=== PATIENT | male | born 1955 | race American Indian/Alaskan Native ===

== ENCOUNTER 2021-11-16 14:24 | Inpatient (IN) | payer MEDICARE ==
[2021-11-16 14:53] LABS: ABG Base Excess 2.9 mmol/L (-2.0-3.0); ABG HCO3 27.3 mmol/L (20.0-26.0); ABG Methemoglobin 0.5 % (0.0-1.5); ABG Oxygen Saturation 96.1 % (95.0-99.0); ABG PCO2 41.3 mm Hg; ABG PH 7.439 pH Units (7.350-7.450); ABG PO2 72.1 mm Hg (80.0-90.0)
[2021-11-16 15:24] LABS: Basophils # (Auto) 0.1 K/mm3 (0.0-0.1); Basophils % (Auto) 0.9 % (0.0-1.8); Eosinophils # (Auto) 0.1 K/mm3 (0.0-0.4); Eosinophils % (Auto) 0.9 % (0.0-4.3); Hematocrit 39.3 % (35.5-45.6); Hemoglobin 12.4 gm/dl (11.8-15.2); Lymphocytes # (Auto) 1.5 K/mm3 (1.2-5.4); Lymphocytes % (Auto) 20.5 % (13.4-35.0); Mean Corpuscular HGB Conc 32 % (32-34); Mean Corpuscular Volume 85 fl (84-94); Monocytes # (Auto) 0.8 K/mm3 (0.0-0.8); Monocytes % (Auto) 10.8 % (0.0-7.3); Platelet Count 347 K/mm3 (140-440); Red Blood Count 4.65 M/mm3 (3.65-5.03); Red Cell Distribution Width 13.1 % (13.2-15.2)
[2021-11-16 15:26] LABS: INR 1.13 (0.87-1.13)
--- NOTE | 2021-11-16 15:41 | XRay Report ---
CHEST 1 VIEW INDICATION: RESP. COMPARISON: 11/13/2021 FINDINGS: Support devices: None. Heart: Within normal limits. Lungs/Pleura: Diffuse bilateral lung infiltrates have significantly increased since the comparison ex am. I suspect this represents pulmonary edema. Bilateral pneumonia and viral infection is not exclude d. Additional findings: None. IMPRESSION: Diffuse bilateral lung infiltrates, increased significantly since 11/13/2021. Signer Name: Arnav Richards Jr, MD Signed: 11/16/2021 3:37 PM Workstation Name: [id number]
--- NOTE | 2021-11-16 15:44 | Emergency Department Report ---
ED Shortness of Breath HPI - General Chief Complaint: Dyspnea/Respdistress Stated Complaint: RESP DISTRESS Time Seen by Provider: 11/16/21 14:42 Source: EMS, old records reviewed Mode of arrival: Stretcher Limitations: No Limitations - History of Present Illness Initial Comments: 66-year-old male with a past medical history of atrial fibrillation currently on Eliquis, CAD status post PCI on November 07, 2021 at [facility] in [facility], hypertension, insulin-dependent diabetes, and cognitive impairment presents to the hospital with shortness of breath since discharge from the hospital 2 days ago. As per medical record review patient was admitted November 11 until the for acute respiratory failure with room air saturation 79% and diagnosis of community acquired pneumonia treated with IV antibiotics. Patient had negative Covid test and CT angiogram negative for pulmonary embolism. Patient was discharged on 2 tabs of Augmentin. Patient states today he laid down for a nap and woke up with chest heaviness and dyspnea. Patient was found to be hypoxic on room air and placed on supplemental oxygen upon ED arrival. Patient is vaccinated for Covid patient also complains of generalized abdominal tenderness and decreased bowel movements without nausea, vomiting, or fever. - Related Data Home Medications Medication Instructions Recorded Confirmed Last Taken Amiodarone [Cordarone 200 MG TAB] 200 mg PO DAILY 11/11/21 11/11/21 Unknown Apixaban [Eliquis] 5 mg PO BID 11/11/21 11/11/21 Unknown Aspirin EC [Halfprin EC] 81 mg PO QDAY 11/11/21 11/11/21 Unknown Atorvastatin [Lipitor] 80 mg PO QHS 11/11/21 11/11/21 Unknown Clopidogrel [Plavix] 75 mg PO QDAY 11/11/21 11/11/21 Unknown Metoprolol Succinate [Toprol Xl] 25 mg PO BID 11/11/21 11/11/21 Unknown Nitroglycerin [Nitrostat] 0.4 mg SL Q5M 11/11/21 11/11/21 Unknown donepeziL [Aricept] 5 mg PO HS 11/11/21 11/11/21 Unknown glipiZIDE [Glucotrol] 10 mg PO BID 11/11/21 11/11/21 Unknown ramipriL [Ramipril] 2.5 mg PO DAILY 11/11/21 11/11/21 Unknown Previous Rx's Medication Instructions Recorded Last Taken Type Amoxicillin/K Clav Tab [Augmentin 1 each PO Q12HR #2 tablet 11/14/21 Unknown Rx 875MG TAB] Furosemide [Lasix TAB] 40 mg PO QDAY #30 tablet 11/14/21 Unknown Rx Allergies Allergy/AdvReac Type Severity Reaction Status Date / Time No Known Allergies Allergy Verified 11/11/21 07:07 ED Review of Systems ROS: Stated complaint: RESP DISTRESS Other details as noted in HPI Comment: All other systems reviewed and negative ED Past Medical Hx - Past Medical History Hx Hypertension: Yes Hx Heart Attack/AMI: Yes Hx Congestive Heart Failure: Yes Hx Diabetes: Yes Additional medical history: Atrial fibrillation - Surgical History Hx Coronary Stent: Yes - Social History Smoking Status: Never Smoker - Medications Home Medications: Home Medications Medication Instructions Recorded Confirmed Last Taken Type Amiodarone [Cordarone 200 MG TAB] 200 mg PO DAILY 11/11/21 11/11/21 Unknown History Apixaban [Eliquis] 5 mg PO BID 11/11/21 11/11/21 Unknown History Aspirin EC [Halfprin EC] 81 mg PO QDAY 11/11/21 11/11/21 Unknown History Atorvastatin [Lipitor] 80 mg PO QHS 11/11/21 11/11/21 Unknown History Clopidogrel [Plavix] 75 mg PO QDAY 11/11/21 11/11/21 Unknown History Metoprolol Succinate [Toprol Xl] 25 mg PO BID 11/11/21 11/11/21 Unknown History Nitroglycerin [Nitrostat] 0.4 mg SL Q5M 11/11/21 11/11/21 Unknown History donepeziL [Aricept] 5 mg PO HS 11/11/21 11/11/21 Unknown History glipiZIDE [Glucotrol] 10 mg PO BID 11/11/21 11/11/21 Unknown History ramipriL [Ramipril] 2.5 mg PO DAILY 11/11/21 11/11/21 Unknown History Amoxicillin/K Clav Tab [Augmentin 1 each PO Q12HR #2 tablet 11/14/21 Unknown Rx 875MG TAB] Furosemide [Lasix TAB] 40 mg PO QDAY #30 tablet 11/14/21 Unknown Rx ED Physical Exam - General Limitations: No Limitations - Other Other exam information: General: No acute distress Head: Atraumatic Eyes: normal appearance ENT: Moist mucous membranes Neck: Normal appearance, no midline tenderness Chest: Mild tachypnea, bibasilar crackles CV: Regular rate and rhythm Abdomen: Soft, normal bowel sounds, nontender, nondistended, no rebound or guarding Back: Normal inspection Extremity: Normal inspection, full range of motion, no calf tenderness or edema Neuro: Alert O x 3, no facial asymmetry, speech clear, no gross motor sensory deficit Psych: Appropriate behavior Skin: No rash ED Course Vital Signs 11/16/21 11/16/21 11/16/21 14:29 14:30 14:34 Temperature 98.7 F Pulse Rate 83 85 Respiratory 16 Rate Blood Pressure Blood Pressure 170/110 [Left] O2 Sat by Pulse 96 92 96 Oximetry 11/16/21 11/16/21 11/16/21 14:45 15:00 15:15 Temperature Pulse Rate 81 78 80 Respiratory 18 21 23 Rate Blood Pressure 145/86 145/86 143/92 Blood Pressure [Left] O2 Sat by Pulse 97 97 Oximetry 11/16/21 11/16/21 11/16/21 15:30 15:45 16:01 Temperature Pulse Rate 77 95 H 80 Respiratory 22 22 23 Rate Blood Pressure 143/92 146/93 135/91 Blood Pressure [Left] O2 Sat by Pulse 98 97 96 Oximetry 11/16/21 11/16/21 11/16/21 16:15 16:55 17:01 Temperature Pulse Rate 79 80 89 Respiratory 18 20 Rate Blood Pressure 130/88 130/88 129/99 Blood Pressure [Left] O2 Sat by Pulse 95 95 96 Oximetry 11/16/21 11/16/21 11/16/21 17:15 17:31 17:45 Temperature Pulse Rate 80 83 80 Respiratory 27 H 19 16 Rate Blood Pressure 140/99 133/96 131/92 Blood Pressure [Left] O2 Sat by Pulse 96 98 97 Oximetry 11/16/21 17:50 Temperature Pulse Rate 82 Respiratory Rate Blood Pressure 131/92 Blood Pressure [Left] O2 Sat by Pulse Oximetry - ABG Interpretation Ph: 7.439 PCO2: 41 PO2: 72 (O2 sat 96%) Bicarbonate: 27 Interpretation: other (hypoxia) Additional Comments: on 4L o2 nasal cannula ED Medical Decision Making - Lab Data Result diagrams: 11/16/21 14:44 11/16/21 14:44 Lab Results 0111/16/21 11/16/21 Range/Units 14:44 14:44 14:44 WBC 7.5 (4.5-11.0) K/mm3 RBC 4.65 (3.65-5.03) M/mm3 Hgb 12.4 (11.8-15.2) gm/dl Hct 39.3 (35.5-45.6) % MCV 85 (84-94) fl MCH 27 L (28-32) pg MCHC 32 (32-34) % RDW 13.1 L (13.2-15.2) % Plt Count 347 (140-440) K/mm3 Lymph % (Auto) 20.5 (13.4-35.0) % [place] % (Auto) 10.8 H (0.0-7.3) % Eos % (Auto) 0.9 (0.0-4.3) % Baso % (Auto) 0.9 (0.0-1.8) % Lymph # (Auto) 1.5 (1.2-5.4) K/mm3 [place] # (Auto) 0.8 (0.0-0.8) K/mm3 Eos # (Auto) 0.1 (0.0-0.4) K/mm3 Baso # (Auto) 0.1 (0.0-0.1) K/mm3 Seg Neutrophils % 66.9 (40.0-70.0) % Seg Neutrophils # 5.0 (1.8-7.7) K/mm3 PT (12.2-14.9) Sec. INR (0.87-1.13) APTT (24.2-36.6) Sec. ABG pH (7.350-7.450) pH Units ABG pCO2 mm Hg ABG pO2 (80.0-90.0) mm Hg ABG HCO3 (20.0-26.0) mmol/L ABG O2 Saturation (95.0-99.0) % ABG O2 Content (0.0-44) ABG Base Excess (-2.0-3.0) mmol/L ABG Hemoglobin (14.0-18.0) gm/dl ABG Carboxyhemoglobin (0.0-5.0) % ABG Methemoglobin (0.0-1.5) % Oxyhemoglobin (95.0-99.0) % FiO2 % Sodium 136 L (137-145) mmol/L Potassium 5.4 H (3.6-5.0) mmol/L Chloride 99.1 (98-107) mmol/L Carbon Dioxide 25 (22-30) mmol/L Anion Gap 17 mmol/L BUN 10 (9-20) mg/dL Creatinine 0.9 (0.8-1.3) mg/dL Estimated GFR > 60 ml/min BUN/Creatinine Ratio 11 % Glucose 274 H (75-100) mg/dL Calcium 9.2 (8.4-10.2) mg/dL Magnesium 2.10 (1.7-2.3) mg/dL Total Bilirubin 0.40 (0.1-1.2) mg/dL AST 66 H (5-40) units/L ALT 53 (7-56) units/L Alkaline Phosphatase 134 H (35-129) units/L Total Creatine Kinase 61 (55-170) units/L Troponin T (0.00-0.029) ng/mL NT-Pro-B Natriuret Pep 3097 H (0-900) pg/mL Total Protein 6.6 (6.3-8.2) g/dL Albumin 3.4 L (3.9-5) g/dL Albumin/Globulin Ratio 1.1 % 11/16/21 11/16/21 11/16/21 Range/Units 14:45 15:09 15:09 WBC (4.5-11.0) K/mm3 RBC (3.65-5.03) M/mm3 Hgb (11.8-15.2) gm/dl Hct (35.5-45.6) % MCV (84-94) fl MCH (28-32) pg MCHC (32-34) % RDW (13.2-15.2) % Plt Count (140-440) K/mm3 Lymph % (Auto) (13.4-35.0) % [place] % (Auto) (0.0-7.3) % Eos % (Auto) (0.0-4.3) % Baso % (Auto) (0.0-1.8) % Lymph # (Auto) (1.2-5.4) K/mm3 [place] # (Auto) (0.0-0.8) K/mm3 Eos # (Auto) (0.0-0.4) K/mm3 Baso # (Auto) (0.0-0.1) K/mm3 Seg Neutrophils % (40.0-70.0) % Seg Neutrophils # (1.8-7.7) K/mm3 PT 15.7 H (12.2-14.9) Sec. INR 1.13 (0.87-1.13) APTT 28.0 (24.2-36.6) Sec. ABG pH 7.439 (7.350-7.450) pH Units ABG pCO2 41.3 mm Hg ABG pO2 72.1 L (80.0-90.0) mm Hg ABG HCO3 27.3 H (20.0-26.0) mmol/L ABG O2 Saturation 96.1 (95.0-99.0) % ABG O2 Content 16.2 (0.0-44) ABG Base Excess 2.9 (-2.0-3.0) mmol/L ABG Hemoglobin 12.2 L (14.0-18.0) gm/dl ABG Carboxyhemoglobin 1.7 (0.0-5.0) % ABG Methemoglobin 0.5 (0.0-1.5) % Oxyhemoglobin 94.1 L (95.0-99.0) % FiO2 35 % Sodium (137-145) mmol/L Potassium (3.6-5.0) mmol/L Chloride (98-107) mmol/L Carbon Dioxide (22-30) mmol/L Anion Gap mmol/L BUN (9-20) mg/dL Creatinine (0.8-1.3) mg/dL Estimated GFR ml/min BUN/Creatinine Ratio % Glucose (75-100) mg/dL Calcium (8.4-10.2) mg/dL Magnesium (1.7-2.3) mg/dL Total Bilirubin (0.1-1.2) mg/dL AST (5-40) units/L ALT (7-56) units/L Alkaline Phosphatase (35-129) units/L Total Creatine Kinase (55-170) units/L Troponin T 0.321 H* (0.00-0.029) ng/mL NT-Pro-B Natriuret Pep (0-900) pg/mL Total Protein (6.3-8.2) g/dL Albumin (3.9-5) g/dL Albumin/Globulin Ratio % // Range/Units 17:29 WBC (4.5-11.0) K/mm3 RBC (3.65-5.03) M/mm3 Hgb (11.8-15.2) gm/dl Hct (35.5-45.6) % MCV (84-94) fl MCH (28-32) pg MCHC (32-34) % RDW (13.2-15.2) % Plt Count (140-440) K/mm3 Lymph % (Auto) (13.4-35.0) % [place] % (Auto) (0.0-7.3) % Eos % (Auto) (0.0-4.3) % Baso % (Auto) (0.0-1.8) % Lymph # (Auto) (1.2-5.4) K/mm3 [place] # (Auto) (0.0-0.8) K/mm3 Eos # (Auto) (0.0-0.4) K/mm3 Baso # (Auto) (0.0-0.1) K/mm3 Seg Neutrophils % (40.0-70.0) % Seg Neutrophils # (1.8-7.7) K/mm3 PT (12.2-14.9) Sec. INR (0.87-1.13) APTT (24.2-36.6) Sec. ABG pH (7.350-7.450) pH Units ABG pCO2 mm Hg ABG pO2 (80.0-90.0) mm Hg ABG HCO3 (20.0-26.0) mmol/L ABG O2 Saturation (95.0-99.0) % ABG O2 Content (0.0-44) ABG Base Excess (-2.0-3.0) mmol/L ABG Hemoglobin (14.0-18.0) gm/dl ABG Carboxyhemoglobin (0.0-5.0) % ABG Methemoglobin (0.0-1.5) % Oxyhemoglobin (95.0-99.0) % FiO2 % Sodium (137-145) mmol/L Potassium (3.6-5.0) mmol/L Chloride (98-107) mmol/L Carbon Dioxide (22-30) mmol/L Anion Gap mmol/L BUN (9-20) mg/dL Creatinine (0.8-1.3) mg/dL Estimated GFR ml/min BUN/Creatinine Ratio % Glucose (75-100) mg/dL Calcium (8.4-10.2) mg/dL Magnesium (1.7-2.3) mg/dL Total Bilirubin (0.1-1.2) mg/dL AST (5-40) units/L ALT (7-56) units/L Alkaline Phosphatase (35-129) units/L Total Creatine Kinase (55-170) units/L Troponin T 0.277 H* (0.00-0.029) ng/mL NT-Pro-B Natriuret Pep (0-900) pg/mL Total Protein (6.3-8.2) g/dL Albumin (3.9-5) g/dL Albumin/Globulin Ratio % - EKG Data -: EKG Interpreted by Co EKG shows normal: sinus rhythm, intervals (QTC 556 (prolonged)), QRS complexes (QRS duration 87 (normal)), ST-T waves (No ST elevation ME) Rate: normal (81) - EKG Data When compared to previous EKG there are: no significant change - Radiology Data Radiology results: report reviewed CHEST 1 VIEW INDICATION: RESP. COMPARISON: 11/13/2021 FINDINGS: Support devices: None. Heart: Within normal limits. Lungs/Pleura: Diffuse bilateral lung infiltrates have significantly increased since the comparison exam. I suspect this represents pulmonary edema. Bilateral pneumonia and viral infection is not excluded. Additional findings: None. IMPRESSION: Diffuse bilateral lung infiltrates, increased significantly since 11/13/2021. CT abdomen pelvis w con INDICATION / CLINICAL INFORMATION: Abdominal pain, constipation, distention.. TECHNIQUE: Axial CT images were obtained through the abdomen and pelvis after 100 cc of Omnipaque [address] scans at this location are performed using CT dose reduction for ALARA by means of automated exposure control. COMPARISON: CTA of the chest from 11/11/2021. FINDINGS: LOWER CHEST: Small bilateral pleural effusions and adjacent volume loss are unchanged. Mild pulmonary opacities within the right lung base. Other previously described airspace disease is not included on the study. LIVER: No significant abnormality GALLBLADDER/BILIARY TREE: Uncomplicated cholelithiasis. No evidence of biliary dilatation. PANCREAS: No significant abnormality SPLEEN: No significant abnormality ADRENALS: No significant abnormality KIDNEYS / URETER: No significant abnormality URINARY BLADDER: No significant abnormality REPRODUCTIVE ORGANS: No significant abnormality STOMACH / BOWEL: The small bowel is normal in caliber. Moderate fluid throughout the colon without evidence of obstruction or localized inflammation. Appendix is visualized and is normal. LYMPH NODES: No significant adenopathy. VASCULATURE: Mild atherosclerotic calcification without acute abnormality. OTHER: No free air, free fluid, or focal fluid collection is identified. SKELETAL SYSTEM: Prominent degenerative endplate changes at the superior plate of L3. No acute osseous findings. IMPRESSION: 1. No acute abnormality of the abdomen or pelvis. No evidence of bowel obstruction or localized inflammation. 2. Small bilateral pleural effusions and adjacent volume loss. Previously described diffuse pulmonary opacities are largely excluded from view. 3. Other chronic and incidental findings as above. - Medical Decision Making 66-year-old male presents to the hospital with shortness of breath that worsened today. Chest x-ray suggestive of pulmonary edema with pleural effusions visualized on abdominal pelvic CT. Patient does have generalized pain endorses constipation. No acute findings identified on CT abdomen and pelvis. Patient does have mild troponin elevation with recent history of ME requiring PCI several weeks ago. Patient treated Jeramie-Synephrine oxygen titration with 4 L na rebel cannula oxygen required in the ED with adequate oxygenation. No signs of CO2 retention or acid-base disturbance. Patient also received nitroglycerin paste and IV Lasix for treatment of acute pulmonary edema. Patient tolerated p.o. intake in the ED despite abdominal discomfort. Recent inpatient Covid test negative. Repeat ordered. Critical Care Time: Yes Critical care time in (mins) excluding proc time.: 35 Critical care attestation.: If time is entered above; I have spent that time in minutes in the direct care of this critically ill patient, excluding procedure time. Critical Care Time: 35 Minutes of critical care time excluding procedures were used in the care of the patient. I discussed treatment plan with the nursing team members. I reviewed electronic record. I spoke with family to obtain medical history. Patient required multiple interventions and reassessments. Patient required oxygen titration and ABG interpretation for acute respiratory failure. Patient required multiple interventions including Lasix and nitroglycerin paste for pulmonary edema. ED Disposition Clinical Impression: Acute respiratory failure with hypoxia, Recent myocardial infarction, Acute heart failure Disposition: ADMITTED INPATIENT Is pt being admited?: Yes Condition: Stable Time of Disposition: 18:16 (Dr mcdowell/hosp)
[2021-11-16] MEDS ORDERED: NITROGLYCERIN 2% OINT 1 GM TP ONE (15:45)
[2021-11-16] MEDS ORDERED: CEFEPIME/NS 2 GM/100 ML 2 GM/100 ML BAG IV ONE (15:48)
[2021-11-16 15:58] LABS: Alanine Aminotransferase 53 units/L (7-56); Albumin 3.4 g/dL (3.9-5); BUN/Creatinine Ratio 11; Blood Urea Nitrogen 10 mg/dL (9-20); Calcium 9.2 mg/dL (8.4-10.2); Hemolysis Index 33
[2021-11-16] MEDS ORDERED: VANCOMYCIN 1,500 MG in SODIUM CHLORIDE 0.9% 500 ML 500 ML IV ONE (16:00)
[2021-11-16] MEDS ORDERED: FUROSEMIDE 40 MG/4 ML INJ IV ONE (16:17)
--- NOTE | 2021-11-16 17:04 | Cat Scan Report ---
CT abdomen pelvis w con INDICATION / CLINICAL INFORMATION: Abdominal pain, constipation, distention.. TECHNIQUE: Axial CT images were obtained through the abdomen and pelvis after 100 cc of Omnipaque [address] scans at this location are performed using CT dose reduction for ALARA by means of automated exposure control. COMPARISON: CTA of the chest from 11/11/2021. FINDINGS: LOWER CHEST: Small bilateral pleural effusions and adjacent volume loss are unchanged. Mild pulmonary opacities within the right lung base. Other previously described airspace disease is not included on the study. LIVER: No significant abnormality GALLBLADDER/BILIARY TREE: Uncomplicated cholelithiasis. No evidence of biliary dilatation. PANCREAS: No significant abnormality SPLEEN: No significant abnormality ADRENALS: No significant abnormality KIDNEYS / URETER: No significant abnormality URINARY BLADDER: No significant abnormality REPRODUCTIVE ORGANS: No significant abnormality STOMACH / BOWEL: The small bowel is normal in caliber. Moderate fluid throughout the colon without ev idence of obstruction or localized inflammation. Appendix is visualized and is normal. LYMPH NODES: No significant adenopathy. VASCULATURE: Mild atherosclerotic calcification without acute abnormality. OTHER: No free air, free fluid, or focal fluid collection is identified. SKELETAL SYSTEM: Prominent degenerative endplate changes at the superior plate of L3. No acute osseou s findings. IMPRESSION: 1. No acute abnormality of the abdomen or pelvis. No evidence of bowel obstruction or localized infla mmation. 2. Small bilateral pleural effusions and adjacent volume loss. Previously described diffuse pulmonary opacities are largely excluded from view. 3. Other chronic and incidental findings as above. Signer Name: Flash Cheek MD Signed: 11/16/2021 5:00 PM Workstation Name: [id number]
--- NOTE | 2021-11-16 19:01 | History and Physical Report ---
History of Present Illness Date of examination: 11/16/21 Date of admission: November 16, 2021 Chief complaint: Shortness of breath for 1 day History of present illness: 66-year-old man with history of hypertension, type 2 diabetes, coronary artery disease, hyperlipidemia and atrial fibrillation, coronary artery disease PCI on November 07, 2021 at) comes in for shortness of breath for 2 days. Patient was apparently admitted for acute respiratory failure from November 14 and was discharged. Apparently oxygen saturations were 79% and the diagnosis of community-acquired pneumonia was made and was treated with IV antibiotics. Patient apparently had a negative Covid test. Patient CT angiogram was also negative for pulmonary embolism. Patient was discharged Augmentin. Patient comes in shortness of breath and his oxygen saturation were low at the time of admission to the ER. But after couple hours patient improved and near normal. On 2 L nasal cannula oxygen. Review of Systems ROS: Stated complaint: RESP DISTRESS Other details as noted in HPI Comment: All other systems reviewed and negative - Past Medical History --Hypertension: Yes --Heart Attack/AMI: Yes --Congestive Heart Failure: Yes --Diabetes: Yes --Additional medical history: Atrial fibrillation - Surgical History Coronary Stent: Yes - Social History Smoking Status: Never Smoker - Medications Home Medications: Home Medications Medication Instructions Recorded Confirmed Last Taken Type Amiodarone [Cordarone 200 MG TAB] 200 mg PO DAILY 11/11/21 11/11/21 Unknown History Apixaban [Eliquis] 5 mg PO BID 11/11/21 11/11/21 Unknown History Aspirin EC [Halfprin EC] 81 mg PO QDAY 11/11/21 11/11/21 Unknown History Atorvastatin [Lipitor] 80 mg PO QHS 11/11/21 11/11/21 Unknown History Clopidogrel [Plavix] 75 mg PO QDAY 11/11/21 11/11/21 Unknown History Metoprolol Succinate [Toprol Xl] 25 mg PO BID 11/11/21 11/11/21 Unknown History Nitroglycerin [Nitrostat] 0.4 mg SL Q5M 11/11/21 11/11/21 Unknown History donepeziL [Aricept] 5 mg PO HS 11/11/21 11/11/21 Unknown History glipiZIDE [Glucotrol] 10 mg PO BID 11/11/21 11/11/21 Unknown History ramipriL [Ramipril] 2.5 mg PO DAILY 11/11/21 11/11/21 Unknown History Amoxicillin/K Clav Tab [Augmentin 1 each PO Q12HR #2 tablet 11/14/21 Unknown Rx 875MG TAB] Furosemide [Lasix TAB] 40 mg PO QDAY #30 tablet 11/14/21 Unknown Rx Medications and Allergies Allergies Allergy/AdvReac Type Severity Reaction Status Date / Time No Known Allergies Allergy Verified 11/11/21 07:07 Home Medications Medication Instructions Recorded Confirmed Last Taken Type Amiodarone [Cordarone 200 MG TAB] 200 mg PO DAILY 11/11/21 11/17/21 Unknown History Apixaban [Eliquis] 5 mg PO BID 11/11/21 11/17/21 Unknown History Aspirin EC [Halfprin EC] 81 mg PO QDAY 11/11/21 11/17/21 Unknown History Atorvastatin [Lipitor] 80 mg PO QHS 11/11/21 11/17/21 Unknown History Clopidogrel [Plavix] 75 mg PO QDAY 11/11/21 11/17/21 Unknown History Metoprolol Succinate [Toprol Xl] 25 mg PO BID 11/11/21 11/17/21 Unknown History Nitroglycerin [Nitrostat] 0.4 mg SL Q5M 11/11/21 11/17/21 Unknown History donepeziL [Aricept] 5 mg PO HS 11/11/21 11/17/21 Unknown History glipiZIDE [Glucotrol] 10 mg PO BID 11/11/21 11/17/21 Unknown History ramipriL [Ramipril] 2.5 mg PO DAILY 11/11/21 11/17/21 Unknown History Amoxicillin/K Clav Tab [Augmentin 1 each PO Q12HR #2 tablet 11/14/21 11/17/21 2 Days Ago Rx 875MG TAB] ~11/15/21 Furosemide [Lasix TAB] 40 mg PO QDAY #30 tablet 11/14/21 11/17/21 Unknown Rx Exam - Constitutional Vitals: Temp Pulse Resp BP Pulse Ox 98.7 F 82 16 131/92 97 11/16/21 14:29 11/16/21 17:50 11/16/21 17:45 11/16/21 17:50 11/16/21 17:45 General appearance: Present: no acute distress, well-nourished - EENT Eyes: Present: PERRL ENT: hearing intact, clear oral mucosa - Neck Neck: Present: supple, normal ROM - Respiratory Respiratory effort: normal Respiratory: bilateral: CTA, rhonchi, wheezing - Cardiovascular Heart rate: 78 Rhythm: regular Heart Sounds: Present: S1 & S2. Absent: rub, click - Extremities Extremities: pulses symmetrical, No edema Peripheral Pulses: within normal limits - Abdominal General gastrointestinal: Present: soft, non-tender, non-distended, normal bowel sounds Male genitourinary: Present: normal - Integumentary Integumentary: Present: clear, warm, dry - Musculoskeletal Musculoskeletal: gait normal, strength equal bilaterally - Psychiatric Psychiatric: appropriate mood/affect, intact judgment & insight - Neurologic Neurologic: CNII-XII intact, moves all extremities - Allied Health Allied health notes reviewed: nursing, case management HEART Score - HEART Score History: Moderately suspicious Age: > 65 Troponin: Troponin T 0.277 ng/mL (0.00-0.029) H* 11/16/21 17:29 Troponin: < normal limit - Critical Actions Critical Actions: 0-3 pts:0.9-1.7%risk of adverse cardiac event.Candidate for discharge Results - Labs CBC & Chem 7: 11/16/21 14:44 11/16/21 14:44 Labs: Laboratory Last Values WBC 7.5 K/mm3 (4.5-11.0) 11/16/21 14:44 RBC 4.65 M/mm3 (3.65-5.03) 11/16/21 14:44 Hgb 12.4 gm/dl (11.8-15.2) 11/16/21 14:44 Hct 39.3 % (35.5-45.6) 11/16/21 14:44 MCV 85 fl (84-94) 11/16/21 14:44 MCH 27 pg (28-32) L 11/16/21 14:44 MCHC 32 % (32-34) 11/16/21 14:44 RDW 13.1 % (13.2-15.2) L 11/16/21 14:44 Plt Count 347 K/mm3 (140-440) 11/16/21 14:44 Lymph % (Auto) 20.5 % (13.4-35.0) 11/16/21 14:44 [place] % (Auto) 10.8 % (0.0-7.3) H 11/16/21 14:44 Eos % (Auto) 0.9 % (0.0-4.3) 11/16/21 14:44 Baso % (Auto) 0.9 % (0.0-1.8) 11/16/21 14:44 Lymph # (Auto) 1.5 K/mm3 (1.2-5.4) 11/16/21 14:44 [place] # (Auto) 0.8 K/mm3 (0.0-0.8) 11/16/21 14:44 Eos # (Auto) 0.1 K/mm3 (0.0-0.4) 11/16/21 14:44 Baso # (Auto) 0.1 K/mm3 (0.0-0.1) 11/16/21 14:44 Seg Neutrophils % 66.9 % (40.0-70.0) 11/16/21 14:44 Seg Neutrophils # 5.0 K/mm3 (1.8-7.7) 11/16/21 14:44 PT 15.7 Sec. (12.2-14.9) H 11/16/21 15:09 INR 1.13 (0.87-1.13) 11/16/21 15:09 APTT 28.0 Sec. (24.2-36.6) 11/16/21 15:09 ABG pH 7.439 pH Units (7.350-7.450) 11/16/21 14:45 ABG pCO2 41.3 mm Hg 11/16/21 14:45 ABG pO2 72.1 mm Hg (80.0-90.0) L 11/16/21 14:45 ABG HCO3 27.3 mmol/L (20.0-26.0) H 11/16/21 14:45 ABG O2 Saturation 96.1 % (95.0-99.0) 11/16/21 14:45 ABG O2 Content 16.2 (0.0-44) 11/16/21 14:45 ABG Base Excess 2.9 mmol/L (-2.0-3.0) 11/16/21 14:45 ABG Hemoglobin 12.2 gm/dl (14.0-18.0) L 11/16/21 14:45 ABG Carboxyhemoglobin 1.7 % (0.0-5.0) 11/16/21 14:45 ABG Methemoglobin 0.5 % (0.0-1.5) 11/16/21 14:45 Oxyhemoglobin 94.1 % (95.0-99.0) L 11/16/21 14:45 FiO2 35 % 11/16/21 14:45 Sodium 136 mmol/L (137-145) L 11/16/21 14:44 Potassium 5.4 mmol/L (3.6-5.0) H 11/16/21 14:44 Chloride 99.1 mmol/L (98-107) 11/16/21 14:44 Carbon Dioxide 25 mmol/L (22-30) 11/16/21 14:44 Anion Gap 17 mmol/L 11/16/21 14:44 BUN 10 mg/dL (9-20) 11/16/21 14:44 Creatinine 0.9 mg/dL (0.8-1.3) 11/16/21 14:44 Estimated GFR > 60 ml/min 11/16/21 14:44 BUN/Creatinine Ratio 11 % 11/16/21 14:44 Glucose 274 mg/dL (75-100) H 11/16/21 14:44 Calcium 9.2 mg/dL (8.4-10.2) 11/16/21 14:44 Magnesium 2.10 mg/dL (1.7-2.3) 11/16/21 14:44 Total Bilirubin 0.40 mg/dL (0.1-1.2) 11/16/21 14:44 AST 66 units/L (5-40) H 11/16/21 14:44 ALT 53 units/L (7-56) 11/16/21 14:44 Alkaline Phosphatase 134 units/L (35-129) H 11/16/21 14:44 Total Creatine Kinase 61 units/L (55-170) 11/16/21 14:44 Troponin T 0.277 ng/mL (0.00-0.029) H* 11/16/21 17:29 NT-Pro-B Natriuret Pep 3097 pg/mL (0-900) H 11/16/21 14:44 Total Protein 6.6 g/dL (6.3-8.2) 11/16/21 14:44 Albumin 3.4 g/dL (3.9-5) L 11/16/21 14:44 Albumin/Globulin Ratio 1.1 % 11/16/21 14:44 Short CBC 11/16/21 Range/Units 14:44 WBC 7.5 (4.5-11.0) K/mm3 Hgb 12.4 (11.8-15.2) gm/dl Hct 39.3 (35.5-45.6) % Plt Count 347 (140-440) K/mm3 BMP 11/16/21 14:44 Sodium 136 L Potassium 5.4 H Chloride 99.1 Carbon Dioxide 25 BUN 10 Creatinine 0.9 Glucose 274 H Calcium 9.2 Cardiac Enzymes 11/16/21 11/16/21 11/16/21 Range/Units 14:44 15:09 17:29 Total Creatine Kinase 61 (55-170) units/L Troponin T 0.321 H* 0.277 H* (0.00-0.029) ng/mL Liver Function 11/16/21 Range/Units 14:44 Total Bilirubin 0.40 (0.1-1.2) mg/dL AST 66 H (5-40) units/L ALT 53 (7-56) units/L Alkaline Phosphatase 134 H (35-129) units/L Albumin 3.4 L (3.9-5) g/dL Microbiology: Microbiology 11/16/21 16:13 Peripheral/Venous Blood Culture - Preliminary Culture in Progress 11/16/21 16:08 Peripheral/Venous Blood Culture - Preliminary Culture in Progress - Imaging and Cardiology EKG: report reviewed Chest x-ray: report reviewed Imaging and Cardiology: Chest x-ray Diffuse bilateral lung infiltrates, increased significantly since 11/13/2021 Abdomen/pelvis CT No acute abnormality of the abdomen or pelvis. No evidence of bowel obstruction. Small bilateral pleural effusions and bibasilar volume loss. Previously described pulmonary diffuse opacities. Other chronic and incidental findings EKG showed normal sinus rhythm with intervals of prolonged QTC of 556, QRS complexes QRS duration [address] reevaluation no accelerations. Rate is 21.. Assessment and Plan Advance Directives: Yes (Full code) Plan of care discussed with patient/family: Yes - Patient Problems (1) Acute respiratory failure with hypoxia Current Visit: Yes Status: Acute Plan to address problem: Possible acute pulmonary edema Rule out coronavirus infection IV Lasix (2) Suspected COVID-19 virus infection Current Visit: No Status: Acute Plan to address problem: Covid PCR in the morning (3) Acute exacerbation of CHF (congestive heart failure) Current Visit: Yes Status: Acute Qualifiers: Heart failure type: combined systolic and diastolic Qualified Code(s): I50.43 - Acute on chronic combined systolic (congestive) and diastolic (congestive) heart failure Plan to address problem: IV Lasix for now Echocardiogram for ejection fraction (4) Bilateral pneumonia Current Visit: Yes Status: Acute Plan to address problem: Antibiotics for now Discontinue if procalcitonin is normal (5) Arrhythmia Current Visit: Yes Status: Acute Plan to address problem: On Eliquis (6) CAD (coronary artery disease) Current Visit: Yes Status: Chronic Qualifiers: Coronary Disease-Associated Artery/Lesion type: elim ira artery [place] vs. 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 Patient is full code. Patient acknowledges understanding and agreement with care plan. +30 minutes.
[2021-11-16] MEDS ORDERED: ACETAMINOPHEN 325 MG TAB PO PRN (19:03)
[2021-11-16] MEDS ORDERED: ONDANSETRON 4 MG/2 ML INJ IV PRN (19:03)
[2021-11-16 19:06] LABS: ABG Base Excess 4.1 mmol/L (-2.0-3.0); ABG Methemoglobin 0.5 % (0.0-1.5); ABG Oxygen Saturation 91.5 % (95.0-99.0); ABG PCO2 39.9 mm Hg; ABG PH 7.465 pH Units (7.350-7.450)
[2021-11-16] MEDS ORDERED: HYDROmorphone 1 MG/1 ML INJ IV PRN (19:12)
[2021-11-16] MEDS ORDERED: oxyCODONE /ACETAMINOPHEN 5-325MG TAB PO PRN (19:12)
[2021-11-16] MEDS ORDERED: RAMIPRIL 2.5 MG PO SCH (20:00)
[2021-11-16] MEDS: DONEPEZIL 5 MG TAB PO SCH (21:32)
[2021-11-16] MEDS: POTASSIUM CHLORIDE ER 20 MEQ TAB PO SCH (21:33)
[2021-11-16] MEDS: FAMOTIDINE 20 MG TAB PO SCH (21:34)
[2021-11-16] MEDS: glipiZIDE 5 MG TAB PO SCH (21:34)
[2021-11-16] MEDS ORDERED: APIXABAN 5 MG TAB PO SCH (22:00)
[2021-11-16] MEDS ORDERED: NON-FORMULARY EACH (Apixaban 5 MG Tablet) PO SCH (22:00)
[2021-11-16] MEDS ORDERED: HEPARIN 5,000 UNIT/1 ML VIAL SUB-Q SCH (22:00)
[2021-11-16] MEDS ORDERED: NON-FORMULARY EACH (Atorvastatin [Lipitor] 80 MG Tablet) PO SCH (22:00)
[2021-11-16] MEDS: AMIODARONE 200 MG TAB PO SCH (22:16)
[2021-11-17] MEDS: ASPIRIN EC 81 MG TAB PO SCH ×2 (00:08→09:34)
[2021-11-17] MEDS: METOPROLOL SUCCINATE XL 25 MG TAB PO SCH ×3 (00:08→22:24)
[2021-11-17] MEDS ORDERED: FUROSEMIDE 40 MG/4 ML INJ IV SCH (06:00)
[2021-11-17] MEDS ORDERED: HEPARIN 10,000 UNITS/10 ML VIAL IV PRN (07:59)
[2021-11-17] MEDS ORDERED: HEPARIN 10,000 UNITS/10 ML VIAL IV ONE ×2 (07:59→09:00)
[2021-11-17 09:27] LABS: Basophils % (Auto) 0.2 % (0.0-1.8); Eosinophils # (Auto) 0.1 K/mm3 (0.0-0.4); Hematocrit 36.7 % (35.5-45.6); Hemoglobin 11.7 gm/dl (11.8-15.2); Lymphocytes # (Auto) 1.4 K/mm3 (1.2-5.4); Mean Corpuscular HGB Conc 32 % (32-34); Mean Corpuscular Volume 84 fl (84-94); Monocytes # (Auto) 0.8 K/mm3 (0.0-0.8); Monocytes % (Auto) 9.4 % (0.0-7.3); Platelet Count 378 K/mm3 (140-440); Red Cell Distribution Width 12.9 % (13.2-15.2)
[2021-11-17] MEDS: glipiZIDE 5 MG TAB PO SCH ×2 (09:34→22:15)
[2021-11-17] MEDS: cefTRIAXone/NS 2 GM/100 ML 2 GM/100 ML BAG IV SCH ×2 (09:34→10:32)
[2021-11-17] MEDS: POTASSIUM CHLORIDE ER 20 MEQ TAB PO SCH ×2 (09:35→22:14)
[2021-11-17] MEDS: FAMOTIDINE 20 MG TAB PO SCH ×2 (09:35→22:14)
[2021-11-17 09:36] LABS: INR 1.14 (0.87-1.13)
[2021-11-17 09:37] LABS: Alanine Aminotransferase 46 units/L (7-56); Albumin 2.9 g/dL (3.9-5); BUN/Creatinine Ratio 10; Blood Urea Nitrogen 10 mg/dL (9-20); Calcium 8.9 mg/dL (8.4-10.2); Hemolysis Index 3; Partial Thromboplastin Time 36.3 Sec. (24.2-36.6)
[2021-11-17] MEDS: LISINOPRIL 5 MG TAB PO SCH (09:37)
[2021-11-17] MEDS: AMIODARONE 200 MG TAB PO SCH (09:37)
[2021-11-17] MEDS ORDERED: APIXABAN 5 MG TAB PO SCH (10:00)
--- NOTE | 2021-11-17 10:22 | Consultation ---
History of Present Illness Consult reason: congestive heart failure History of present illness: 66-year-old -[place] with a history of coronary artery disease atrial fibrillation hypertension hyperlipidemia presenting with shortness of breath. O2 saturations of 79%. Patient admitted for further evaluation. Past History Past Medical History: atrial fib, CAD, COPD, hypertension, hyperlipidemia Past Surgical History: PTCA Social history: smoking. denies: alcohol abuse, prescription drug abuse, IV drug use Family history: hypertension Medications and Allergies Allergies Allergy/AdvReac Type Severity Reaction Status Date / Time No Known Allergies Allergy Verified 11/11/21 07:07 Home Medications Medication Instructions Recorded Confirmed Last Taken Type Amiodarone [Cordarone 200 MG TAB] 200 mg PO DAILY 11/11/21 11/17/21 Unknown History Apixaban [Eliquis] 5 mg PO BID 11/11/21 11/17/21 Unknown History Aspirin EC [Halfprin EC] 81 mg PO QDAY 11/11/21 11/17/21 Unknown History Atorvastatin [Lipitor] 80 mg PO QHS 11/11/21 11/17/21 Unknown History Clopidogrel [Plavix] 75 mg PO QDAY 11/11/21 11/17/21 Unknown History Metoprolol Succinate [Toprol Xl] 25 mg PO BID 11/11/21 11/17/21 Unknown History Nitroglycerin [Nitrostat] 0.4 mg SL Q5M 11/11/21 11/17/21 Unknown History donepeziL [Aricept] 5 mg PO HS 11/11/21 11/17/21 Unknown History glipiZIDE [Glucotrol] 10 mg PO BID 11/11/21 11/17/21 Unknown History ramipriL [Ramipril] 2.5 mg PO DAILY 11/11/21 11/17/21 Unknown History Amoxicillin/K Clav Tab [Augmentin 1 each PO Q12HR #2 tablet 11/14/21 11/17/21 2 Days Ago Rx 875MG TAB] ~11/15/21 Furosemide [Lasix TAB] 40 mg PO QDAY #30 tablet 11/14/21 11/17/21 Unknown Rx Active Meds: Active Medications Acetaminophen (Acetaminophen 325 Mg Tab) 650 mg PO Q4H PRN PRN Reason: Pain MILD(1-3)/Fever >100.5/VIDAL Amiodarone HCl (Amiodarone 200 Mg Tab) 200 mg PO DAILY [facility] Last Admin: 11/17/21 09:37 Dose: 200 mg Apixaban (Apixaban 5 Mg Tab) 5 mg PO Q12HR [facility] Aspirin (Aspirin Ec 81 Mg Tab) 81 mg PO QDAY [facility] Last Admin: 11/17/21 09:34 Dose: 81 mg Atorvastatin Calcium (Atorvastatin 40 Mg Tab) 80 mg PO QHS [facility] Last Admin: 11/16/21 21:33 Dose: 80 mg Donepezil HCl (Donepezil 5 Mg Tab) 5 mg PO HS [facility] Last Admin: 11/16/21 21:32 Dose: 5 mg Famotidine (Famotidine 20 Mg Tab) 20 mg PO BID [facility] Last Admin: 11/17/21 09:35 Dose: 20 mg Furosemide (Furosemide 40 Mg/4 Ml Inj) 40 mg IV 0600,1800 [facility] Glipizide (Glipizide 5 Mg Tab) 5 mg PO BID [facility] Last Admin: 11/17/21 09:34 Dose: 5 mg Heparin Sodium (Porcine) (Heparin 10,000 Units/10 Ml Vial) 3,000 unit 40 unit/kg (3000 unit) IV Q6H PRN PRN Reason: Anti-Xa Assay < 0.1 units/ml Azithromycin (Zithromax/Ns) 500 mg in 250 mls @ 250 mls/hr IV Q24H [facility] Ceftriaxone Sodium (Rocephin/Ns 2 Gm/100 Ml) 2 gm in 100 mls @ 200 mls/hr IV Q24HR [facility]; Protocol Last Admin: 11/17/21 09:34 Dose: 200 mls/hr Heparin Sodium/Sodium Chloride (Heparin/ 0.45% Nacl-25,000 Unit/500 Ml) 25,000 unit in 500 mls @ 20 mls/hr IV TITRATE [facility]; Protocol Insulin Human Lispro (Insulin Lispro 100 Unit/Ml) 0 unit SUB-Q ACHS [facility]; Protocol Lisinopril (Lisinopril 5 Mg Tab) 5 mg PO QDAY [facility] Last Admin: 11/17/21 09:37 Dose: 5 mg Metoprolol Succinate (Metoprolol Succinate Xl 25 Mg Tab) 25 mg PO BID [facility] Last Admin: 11/17/21 09:36 Dose: 25 mg Ondansetron HCl (Ondansetron 4 Mg/2 Ml Inj) 4 mg IV Q8H PRN PRN Reason: Nausea And Vomiting Potassium Chloride (Potassium Chloride Er 20 Meq Tab) 20 meq PO Q12HR [facility] Last Admin: 11/17/21 09:35 Dose: 20 meq Sodium Chloride (Sodium Chloride 0.9% 10 Ml Flush Syringe) 10 ml IV BID [facility] Last Admin: 11/17/21 09:38 Dose: 10 ml Sodium Chloride (Sodium Chloride 0.9% 10 Ml Flush Syringe) 10 ml IV PRN PRN PRN Reason: LINE FLUSH Review of Systems Constitutional: no weight loss, no weight gain Ears, nose, mouth and throat: no ear pain, no ear discharge, no tinnitis, no hoarseness, no headache, no vertigo Cardiovascular: shortness of breath, dyspnea on exertion, no chest pain, no leg edema Respiratory: cough, shortness of breath, congestion Gastrointestinal: no abdominal pain, no nausea, no vomiting, no diarrhea Genitourinary Male: no dysuria, no hematuria, no flank pain Musculoskeletal: no neck stiffness, no neck pain, no shooting arm pain, no low back pain Integumentary: no rash, no pruritis, no wounds Neurological: no paralysis, no weakness, no parathesias, no numbness, no vertigo, no headaches, no migraines Psychiatric: no anxiety, no memory loss, no change in sleep habits, no depression Endocrine: no cold intolerance, no heat intolerance, no polydipsia, no polyuria, no nocturia Hematologic/Lymphatic: no easy bruising, no easy bleeding Allergic/Immunologic: no urticaria, no allergic rhinitis, no wheezing Physical Examination Vital Signs Temp Pulse Resp BP Pulse Ox 98.7 F 83 16 170/110 96 11/16/21 14:29 11/16/21 14:29 11/16/21 14:29 11/16/21 14:29 11/16/21 14:29 HEENT: Positive: PERRL, Mucus Membranes Moist Neck: Positive: neck supple, trachea midline Cardiac: Positive: S1/S2, PMI, Laterally Displaced. Negative: S3, S4 Lungs: Positive: Rhonchi. Negative: Wheezes Neuro: Positive: Grossly Intact Abdomen: Positive: Soft, Active Bowel Sounds. Negative: Tender, Distended Male genitourinary: Positive: deferred Skin: Positive: Clear Extremities: Absent: edema Results 11/17/21 08:48 11/17/21 08:48 Cardiac Enzymes 11/16/21 11/17/21 Range/Units 14:44 08:48 AST 66 H 56 H (5-40) units/L Coagulation 11/16/21 11/17/21 Range/Units 15:09 08:48 PT 15.7 H 15.8 H (12.2-14.9) Sec. INR 1.13 1.14 H (0.87-1.13) APTT 28.0 36.3 (24.2-36.6) Sec. CBC 11/16/21 11/17/21 Range/Units 14:44 08:48 WBC 7.5 8.1 (4.5-11.0) K/mm3 RBC 4.65 4.40 (3.65-5.03) M/mm3 Hgb 12.4 11.7 L (11.8-15.2) gm/dl Hct 39.3 36.7 (35.5-45.6) % Plt Count 347 378 (140-440) K/mm3 Lymph # (Auto) 1.5 1.4 (1.2-5.4) K/mm3 [place] # (Auto) 0.8 0.8 (0.0-0.8) K/mm3 Eos # (Auto) 0.1 0.1 (0.0-0.4) K/mm3 Baso # (Auto) 0.1 0.0 (0.0-0.1) K/mm3 Comprehensive Metabolic Panel 11/16/21 11/17/21 Range/Units 14:44 08:48 Sodium 136 L 132 L (137-145) mmol/L Potassium 5.4 H 4.3 D (3.6-5.0) mmol/L Chloride 99.1 96.2 L (98-107) mmol/L Carbon Dioxide 25 29 (22-30) mmol/L BUN 10 10 (9-20) mg/dL Creatinine 0.9 1.0 (0.8-1.3) mg/dL Glucose 274 H 304 H (75-100) mg/dL Calcium 9.2 8.9 (8.4-10.2) mg/dL AST 66 H 56 H (5-40) units/L ALT 53 46 (7-56) units/L Alkaline Phosphatase 134 H 125 (35-129) units/L Total Protein 6.6 6.5 (6.3-8.2) g/dL Albumin 3.4 L 2.9 L (3.9-5) g/dL EKG interpretations - Telemetry EKG Rhythm: Sinus Rhythm Assessment and Plan 1. Community-acquired pneumonia probably viral pneumonia. 2. Acute systolic heart failure 3. Coronary artery disease status post PCI 4. Paroxysmal atrial fibrillation 5. Type 2 diabetes mellitus 6. Essential hypertension 7. Hyperlipidemia Plan. Patient is currently stable has been started on IV antibiotics and supplemental oxygen. Covid test is been negative although I feel this needs to be repeated due to high probability that there might be underlying viral pneumonia. Patient will be started on Nitropaste for pre and afterload reduction to get her weight full anticoagulation with heparin. Recent cardiac echocardiogram and coronary angiogram will be reviewed. Equivocal elevated serum troponin levels suggest underlying ischemic cardiomyopathy.
[2021-11-17] MEDS: AZITHROMYCIN/NS 500 MG/250 ML 500 MG/250 ML BAG IV SCH (10:31)
--- NOTE | 2021-11-17 11:43 | Electrocardiograph Report ---
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
[2021-11-17] MEDS ORDERED: NITROGLYCERIN 2% OINT 1 GM TP SCH (12:00)
[2021-11-17] MEDS: HEPARIN/ 0.45% NACL DRIP 25,000 UNIT/500 ML BAG IV SCH (12:20)
[2021-11-17] MEDS: INSULIN LISPRO 100 UNIT/ML SUB-Q SCH ×3 (12:29→23:16)
[2021-11-17] MEDS ORDERED: traMADol 50 MG TAB PO PRN (17:20)
[2021-11-17] MEDS: ACETAMINOPHEN 325 MG TAB PO SCH ×2 (18:54→22:15)
[2021-11-17] MEDS: FUROSEMIDE 40 MG/4 ML INJ IV SCH (18:55)
--- NOTE | 2021-11-17 18:59 | Progress Note ---
Assessment and Plan Assessment and plan: 66-year-old man with history of hypertension, type 2 diabetes, coronary artery disease, hyperlipidemia and atrial fibrillation, coronary artery disease PCI on November 07, 2021 at) comes in for shortness of breath for 2 days, since discharged. Patient was recently admitted here for acute respiratory failure and discharged on 11/14/2021. Imaging studies suggestive of CHF versus pneumonia. CTA negative for PE. Cardiology was consulted and felt that it was CHF. Echo showed LVEF 45 to 50% and moderate to severe MR. Initial oxygen saturations were 79% and hospital medicine service treated him for community- acquired pneumonia . Patient had a negative Covid test. Hypoxia improved, O2 weaned to room air and was discharged Augmentin. Patient comes back to ED for shortness of breath and his oxygen saturation were low at the time of admission to the ER. But after couple hours patient improved On 2 L nasal cannula oxygen, readmitting for further management. (1) Acute respiratory failure with hypoxia Current Visit: Yes Status: Acute Plan to address problem: Likely from CHF with the mitral regurgitation and possible ischemic cardiomyopathy in the setting of PCI 1 to 2 weeks ago. Did not respond to antibiotic therapy for pneumonia Currently needing 2 L of O2 Started on IV Lasix (2) Acute exacerbation of CHF with MR and CAD Current Visit: Yes Status: Acute Qualifiers: Heart failure type: combined systolic and diastolic Qualified Code(s): I50.43 - Acute on chronic combined systolic (congestive) and diastolic (congestive) heart failure Plan to address problem: Echocardiogram in 10/2021 showed borderline LV size, mild LVH, LVEF 45 to 50%, borderline LA size, moderate to severe mitral regurgitation. BNP 3534. Etiology likely mitral regurgitation and possible ischemic cardiomyopathy in the setting of PCI 1 to 2 weeks ago. Cardiology consulted Continue IV Lasix for now (3) borderline flat troponin elevation, CAD s/p PCI on 11/07/21 Current Visit: Yes Status: Chronic Qualifiers: Coronary Disease-Associated Artery/Lesion type: [place] artery [place] vs. transplanted heart: [place] heart Plan to address problem: Status post PCI on . Concerning for ACP/ischemic cardiomyopathy, however patient has no chest pain. Serial troponins 0.32, 0.29, 0. 2 9 Placed on heparin infusion and cardiology consulted. Continue beta-margaux, aspirin, Plavix, statin (4) chronic paroxysmal A. 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 PCR negative for Covid test last week here Reordered Covid PCR Procalcitonin was also normal last week. Currently afebrile with a normal WBC. No need for antibiotics. (6) acute on chronic low back pain Current Visit: Yes Status: Acute Plan to address problem: Patient reports acute exacerbation of back pain since a week or so. Will treat with tramadol and Tylenol as well as PT. 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 (10) DVT prophylaxis Current Visit: Yes Status: Acute Plan to address problem: On heparin guttae currently (11) Advance care planning Current Visit: Yes Status: Acute Plan to address problem: Disease education conducted, care plan discussed, diagnosis discussed, prognosis discussed. Patient is full code. Patient acknowledges understanding and agreement with care plan. +30 minutes. Discussed the patient and the nursing staff. Total time spent in the direct care: 35 minutes History Interval history: Patient is a alert without distress sitting on the edge of the bed. Currently denies any chest pains or dyspnea. No cough. His main concern now is a low back pain which is bothering him since 1 week. Had back problems in the past. Afebrile with stable vital signs. Remains on heparin get for suspected ACS. Cardiology consulted. Hospitalist Physical - Constitutional Vitals: Temp Pulse Resp BP Pulse Ox 97.0 F L 79 18 100/73 96 11/17/21 11:22 11/17/21 12:00 11/17/21 11:22 11/17/21 12:00 11/17/21 11:22 General appearance: Present: no acute distress, well-nourished, other (Mild shortness of breath, alert) - EENT Eyes: Present: PERRL, EOM intact ENT: hearing intact, clear oral mucosa - Neck Neck: Present: supple, other (Neck veins distended.) - Respiratory Respiratory effort: labored (Mildly short of breath) Respiratory: bilateral: CTA (No rales, wheezes or rhonchi) - Cardiovascular Rhythm: regular Heart Sounds: Present: systolic murmur (Harsh 3/6, apical) - Extremities Extremities: No edema - Abdominal General gastrointestinal: soft, non-tender, non-distended, normal bowel sounds - Integumentary Integumentary: Absent: rash - Psychiatric Psychiatric: cooperative - Neurologic Neurologic: no focal deficits, moves all extremities, other (Fully alert, poor historian with history of cognitive impairment, fluent speech) HEART Score - HEART Score Age: > 65 Troponin: Troponin T 0.297 ng/mL (0.00-0.029) H* 11/16/21 20:37 Troponin: < normal limit - Critical Actions Critical Actions: 0-3 pts:0.9-1.7%risk of adverse cardiac event.Candidate for di erasmo Results - Labs CBC & Chem 7: 11/17/21 08:48 11/18/21 04:55 Labs: Laboratory Last Values WBC 8.1 K/mm3 (4.5-11.0) 11/17/21 08:48 RBC 4.40 M/mm3 (3.65-5.03) 11/17/21 08:48 Hgb 11.7 gm/dl (11.8-15.2) L 11/17/21 08:48 Hct 36.7 % (35.5-45.6) 11/17/21 08:48 MCV 84 fl (84-94) 11/17/21 08:48 MCH 27 pg (28-32) L 11/17/21 08:48 MCHC 32 % (32-34) 11/17/21 08:48 RDW 12.9 % (13.2-15.2) L 11/17/21 08:48 Plt Count 378 K/mm3 (140-440) 11/17/21 08:48 Lymph % (Auto) 17.0 % (13.4-35.0) 11/17/21 08:48 [place] % (Auto) 9.4 % (0.0-7.3) H 11/17/21 08:48 Eos % (Auto) 1.0 % (0.0-4.3) 11/17/21 08:48 Baso % (Auto) 0.2 % (0.0-1.8) 11/17/21 08:48 Lymph # (Auto) 1.4 K/mm3 (1.2-5.4) 11/17/21 08:48 [place] # (Auto) 0.8 K/mm3 (0.0-0.8) 11/17/21 08:48 Eos # (Auto) 0.1 K/mm3 (0.0-0.4) 11/17/21 08:48 Baso # (Auto) 0.0 K/mm3 (0.0-0.1) 11/17/21 08:48 Seg Neutrophils % 72.4 % (40.0-70.0) H 11/17/21 08:48 Seg Neutrophils # 5.9 K/mm3 (1.8-7.7) 11/17/21 08:48 PT 15.8 Sec. (12.2-14.9) H 11/17/21 08:48 INR 1.14 (0.87-1.13) H 11/17/21 08:48 APTT 36.3 Sec. (24.2-36.6) 11/17/21 08:48 ABG pH 7.465 pH Units (7.350-7.450) H 11/16/21 18:35 ABG pCO2 39.9 mm Hg 11/16/21 18:35 ABG pO2 55.0 mm Hg (80.0-90.0) L 11/16/21 18:35 ABG HCO3 28.0 mmol/L (20.0-26.0) H 11/16/21 18:35 ABG O2 Saturation 91.5 % (95.0-99.0) L 11/16/21 18:35 ABG O2 Content 16.4 (0.0-44) 11/16/21 18:35 ABG Base Excess 4.1 mmol/L (-2.0-3.0) H 11/16/21 18:35 ABG Hemoglobin 13.0 gm/dl (14.0-18.0) L 11/16/21 18:35 ABG Carboxyhemoglobin 1.6 % (0.0-5.0) 11/16/21 18:35 ABG Methemoglobin 0.5 % (0.0-1.5) 11/16/21 18:35 Oxyhemoglobin 89.7 % (95.0-99.0) L 11/16/21 18:35 FiO2 21 % 11/16/21 18:35 Sodium 132 mmol/L (137-145) L 11/17/21 08:48 Potassium 4.3 mmol/L (3.6-5.0) D 11/17/21 08:48 Chloride 96.2 mmol/L (98-107) L 11/17/21 08:48 Carbon Dioxide 29 mmol/L (22-30) 11/17/21 08:48 Anion Gap 11 mmol/L 11/17/21 08:48 BUN 10 mg/dL (9-20) 11/17/21 08:48 Creatinine 1.0 mg/dL (0.8-1.3) 11/17/21 08:48 Estimated GFR > 60 ml/min 11/17/21 08:48 BUN/Creatinine Ratio 10 % 11/17/21 08:48 Glucose 304 mg/dL (75-100) H 11/17/21 08:48 POC Glucose 124 mg/dL (70-105) H 11/17/21 16:29 Calcium 8.9 mg/dL (8.4-10.2) 11/17/21 08:48 Magnesium 2.10 mg/dL (1.7-2.3) 11/16/21 14:44 Total Bilirubin 0.30 mg/dL (0.1-1.2) 11/17/21 08:48 AST 56 units/L (5-40) H 11/17/21 08:48 ALT 46 units/L (7-56) 11/17/21 08:48 Alkaline Phosphatase 125 units/L (35-129) 11/17/21 08:48 Total Creatine Kinase 61 units/L (55-170) 11/16/21 14:44 Troponin T 0.297 ng/mL (0.00-0.029) H* 11/16/21 20:37 NT-Pro-B Natriuret Pep 3534 pg/mL (0-900) H 11/17/21 08:48 Total Protein 6.5 g/dL (6.3-8.2) 11/17/21 08:48 Albumin 2.9 g/dL (3.9-5) L 11/17/21 08:48 Albumin/Globulin Ratio 0.8 % 11/17/21 08:48 Coronavirus (PCR) Negative (Negative) 11/17/21 09:22 Microbiology: Microbiology 11/16/21 16:13 Peripheral/Venous Blood Culture - Preliminary NO GROWTH AFTER 24 HOURS 11/16/21 16:08 Peripheral/Venous Blood Culture - Preliminary NO GROWTH AFTER 24 HOURS [place]/IV: Voiding Method Urinal Active Medications - Current Medications Current Medications: Generic Name Dose Route Start Last Admin Trade Name Freq PRN Reason Stop Dose Admin Acetaminophen 650 mg 11/17/21 18:00 11/17/21 18:54 Acetaminophen 325 Mg Tab PO 650 mg TID NELIDA Administration Amiodarone HCl 200 mg 11/16/21 20:00 11/17/21 09:37 Amiodarone 200 Mg Tab PO 200 mg DAILY NELIDA Administration Aspirin 81 mg 11/16/21 22:00 11/17/21 09:34 Aspirin Ec 81 Mg Tab PO 81 mg QDAY NELIDA Administration Atorvastatin Calcium 80 mg 11/16/21 22:00 11/16/21 21:33 Atorvastatin 40 Mg Tab PO 80 mg QHS NELIDA Administration Donepezil HCl 5 mg 11/16/21 22:00 11/16/21 21:32 Donepezil 5 Mg Tab PO 5 mg HS NELIDA Administration Famotidine 20 mg 11/16/21 22:00 11/17/21 09:35 Famotidine 20 Mg Tab PO 20 mg BID NELIDA Administration Furosemide 40 mg 11/17/21 18:00 11/17/21 18:55 Furosemide 40 Mg/4 Ml Inj IV 40 mg 0600,1800 NELIDA Administration Glipizide 5 mg 11/16/21 22:00 11/17/21 09:34 Glipizide 5 Mg Tab PO 5 mg BID NELIDA Administration Azithromycin 500 mg in 250 mls @ 250 mls/hr 11/17/21 08:00 11/17/21 10:31 Zithromax/Ns IV 250 mls/hr Q24H NELIDA Administration Ceftriaxone Sodium 2 gm in 100 mls @ 200 mls/hr 11/17/21 08:30 11/17/21 10:32 Rocephin/Ns 2 Gm/100 Ml IV Not Given Q24HR [facility] Protocol Heparin Sodium/Sodium Chloride 25,000 unit in 500 mls @ 20 mls/hr 11/17/21 08:00 11/17/21 12:20 Heparin/ 0.45% Nacl-25,000 Unit/500 Ml IV 1,000 units/hr TITRATE NELIDA 20 mls/hr Administration Protocol 1,000 UNITS/HR Insulin Human Lispro 0 unit 11/17/21 11:30 11/17/21 16:53 Insulin Lispro 100 Unit/Ml SUB-Q Not Given ACHS [facility] Protocol Lisinopril 5 mg 11/17/21 10:00 11/17/21 09:37 Lisinopril 5 Mg Tab PO 5 mg QDAY NELIDA Administration Metoprolol Succinate 25 mg 11/16/21 22:00 11/17/21 09:36 Metoprolol Succinate Xl 25 Mg Tab PO 25 mg BID NELIDA Administration Ondansetron HCl 4 mg 11/16/21 19:03 Ondansetron 4 Mg/2 Ml Inj IV Q8H PRN Nausea And Vomiting Potassium Chloride 20 meq 11/16/21 22:00 11/17/21 09:35 Potassium Chloride Er 20 Meq Tab PO 20 meq Q12HR NELIDA Administration Sodium Chloride 10 ml 11/16/21 22:00 11/17/21 09:38 Sodium Chloride 0.9% 10 Ml Flush Syringe IV 10 ml BID NELIDA Administration Sodium Chloride 10 ml 11/16/21 19:03 Sodium Chloride 0.9% 10 Ml Flush Syringe IV PRN PRN LINE FLUSH Tramadol HCl 50 mg 11/17/21 17:20 Tramadol 50 Mg Tab PO Q6H PRN Pain, Moderate (4-6)
[2021-11-17] MEDS: DONEPEZIL 5 MG TAB PO SCH (22:15)
--- NOTE | 2021-11-17 22:59 | Consultation ---
History of Present Illness Consult date: 11/17/21 Requesting physician: KELLIE PICKENS Reason for consult: hypoxemia History of present illness: 66 y/o male with systolic heart failure, recently admitted and discharged 4 days ago presents to the ED with worsening shortness of breath, hypoxemia and difficulty breathing. CXR shows extensive bilateral alveolar infiltrates that would be consistent with pulmonary edema. patient also has a BNP of greater than 3k. Pulmonary has been consulted for hypoxic respiratory failure. Past History Past Medical History: atrial fib, CAD, hypertension, hyperlipidemia Past Surgical History: PTCA Social history: smoking. denies: alcohol abuse, prescription drug abuse, IV drug use Family history: hypertension Medications and Allergies Allergies Allergy/AdvReac Type Severity Reaction Status Date / Time No Known Allergies Allergy Verified 11/11/21 07:07 Home Medications Medication Instructions Recorded Confirmed Last Taken Type Amiodarone [Cordarone 200 MG TAB] 200 mg PO DAILY 11/11/21 11/17/21 Unknown History Apixaban [Eliquis] 5 mg PO BID 11/11/21 11/17/21 Unknown History Aspirin EC [Halfprin EC] 81 mg PO QDAY 11/11/21 11/17/21 Unknown History Atorvastatin [Lipitor] 80 mg PO QHS 11/11/21 11/17/21 Unknown History Clopidogrel [Plavix] 75 mg PO QDAY 11/11/21 11/17/21 Unknown History Metoprolol Succinate [Toprol Xl] 25 mg PO BID 11/11/21 11/17/21 Unknown History Nitroglycerin [Nitrostat] 0.4 mg SL Q5M 11/11/21 11/17/21 Unknown History donepeziL [Aricept] 5 mg PO HS 11/11/21 11/17/21 Unknown History glipiZIDE [Glucotrol] 10 mg PO BID 11/11/21 11/17/21 Unknown History ramipriL [Ramipril] 2.5 mg PO DAILY 11/11/21 11/17/21 Unknown History Amoxicillin/K Clav Tab [Augmentin 1 each PO Q12HR #2 tablet 11/14/21 11/17/21 2 Days Ago Rx 875MG TAB] ~11/15/21 Furosemide [Lasix TAB] 40 mg PO QDAY #30 tablet 11/14/21 11/17/21 Unknown Rx Active Meds: Active Medications Acetaminophen (Acetaminophen 325 Mg Tab) 650 mg PO TID [facility] Last Admin: 11/17/21 22:15 Dose: 650 mg Amiodarone HCl (Amiodarone 200 Mg Tab) 200 mg PO DAILY [facility] Last Admin: 11/17/21 09:37 Dose: 200 mg Aspirin (Aspirin Ec 81 Mg Tab) 81 mg PO QDAY [facility] Last Admin: 11/17/21 09:34 Dose: 81 mg Atorvastatin Calcium (Atorvastatin 40 Mg Tab) 80 mg PO QHS [facility] Last Admin: 11/17/21 22:14 Dose: 80 mg Donepezil HCl (Donepezil 5 Mg Tab) 5 mg PO HS [facility] Last Admin: 11/17/21 22:15 Dose: 5 mg Famotidine (Famotidine 20 Mg Tab) 20 mg PO BID [facility] Last Admin: 11/17/21 22:14 Dose: 20 mg Furosemide (Furosemide 40 Mg/4 Ml Inj) 40 mg IV 0600,1800 [facility] Last Admin: 11/17/21 18:55 Dose: 40 mg Glipizide (Glipizide 5 Mg Tab) 5 mg PO BID [facility] Last Admin: 11/17/21 22:15 Dose: 5 mg Azithromycin (Zithromax/Ns) 500 mg in 250 mls @ 250 mls/hr IV Q24H [facility] Last Admin: 11/17/21 10:31 Dose: 250 mls/hr Ceftriaxone Sodium (Rocephin/Ns 2 Gm/100 Ml) 2 gm in 100 mls @ 200 mls/hr IV Q24HR [facility]; Protocol Last Admin: 11/17/21 10:32 Dose: Not Given Heparin Sodium/Sodium Chloride (Heparin/ 0.45% Nacl-25,000 Unit/500 Ml) 25,000 unit in 500 mls @ 20 mls/hr IV TITRATE [facility]; Protocol Last Titration: 11/17/21 21:13 Dose: 0 units/hr, 0 mls/hr Insulin Human Lispro (Insulin Lispro 100 Unit/Ml) 0 unit SUB-Q ACHS [facility]; Protocol Last Admin: 11/17/21 16:53 Dose: Not Given Lisinopril (Lisinopril 5 Mg Tab) 5 mg PO QDAY [facility] Last Admin: 11/17/21 09:37 Dose: 5 mg Metoprolol Succinate (Metoprolol Succinate Xl 25 Mg Tab) 25 mg PO BID [facility] Last Admin: 11/17/21 22:24 Dose: Not Given Ondansetron HCl (Ondansetron 4 Mg/2 Ml Inj) 4 mg IV Q8H PRN PRN Reason: Nausea And Vomiting Potassium Chloride (Potassium Chloride Er 20 Meq Tab) 20 meq PO Q12HR [facility] Last Admin: 11/17/21 22:14 Dose: 20 meq Sodium Chloride (Sodium Chloride 0.9% 10 Ml Flush Syringe) 10 ml IV BID [facility] Last Admin: 11/17/21 22:17 Dose: 10 ml Sodium Chloride (Sodium Chloride 0.9% 10 Ml Flush Syringe) 10 ml IV PRN PRN PRN Reason: LINE FLUSH Tramadol HCl (Tramadol 50 Mg Tab) 50 mg PO Q6H PRN PRN Reason: Pain, Moderate (4-6) Physical Examination Vital signs: Vital Signs Temp Pulse Resp BP Pulse Ox 98.7 F 83 16 170/110 96 11/16/21 14:29 11/16/21 14:29 11/16/21 14:29 11/16/21 14:29 11/16/21 14:29 General appearance: no acute distress, alert Eyes: non-icteric ENT: oropharynx moist Neck: supple Ascultation: Bilateral: rales Results - Laboratory Findings CBC and BMP: 11/17/21 08:48 11/17/21 08:48 ABG ABG pH 7.465 pH Units (7.350-7.450) H 11/16/21 18:35 ABG pCO2 39.9 mm Hg 11/16/21 18:35 ABG pO2 55.0 mm Hg (80.0-90.0) L 11/16/21 18:35 ABG O2 Saturation 91.5 % (95.0-99.0) L 11/16/21 18:35 PT/INR, D-dimer PT 15.8 Sec. (12.2-14.9) H 11/17/21 08:48 INR 1.14 (0.87-1.13) H 11/17/21 08:48 Abnormal lab findings: Abnormal Labs 11/16/21 11/16/21 11/16/21 14:44 14:44 14:44 Hgb MCH 27 L RDW 13.1 L [place] % (Auto) 10.8 H Seg Neutrophils % PT INR Heparin Anti-Xa Level ABG pH ABG pO2 ABG HCO3 ABG O2 Saturation ABG Base Excess ABG Hemoglobin Oxyhemoglobin Sodium 136 L Potassium 5.4 H Chloride Glucose 274 H POC Glucose AST 66 H Alkaline Phosphatase 134 H Troponin T NT-Pro-B Natriuret Pep 3097 H Albumin 3.4 L 11/16/21 11/16/21 11/16/21 14:45 15:09 15:09 Hgb MCH RDW [place] % (Auto) Seg Neutrophils % PT 15.7 H INR Heparin Anti-Xa Level ABG pH ABG pO2 72.1 L ABG HCO3 27.3 H ABG O2 Saturation ABG Base Excess ABG Hemoglobin 12.2 L Oxyhemoglobin 94.1 L Sodium Potassium Chloride Glucose POC Glucose AST Alkaline Phosphatase Troponin T 0.321 H* NT-Pro-B Natriuret Pep Albumin 11/16/21 11/16/21 11/16/21 17:29 18:35 20:37 Hgb MCH RDW [place] % (Auto) Seg Neutrophils % PT INR Heparin Anti-Xa Level ABG pH 7.465 H ABG pO2 55.0 L ABG HCO3 28.0 H ABG O2 Saturation 91.5 L ABG Base Excess 4.1 H ABG Hemoglobin 13.0 L Oxyhemoglobin 89.7 L Sodium Potassium Chloride Glucose POC Glucose AST Alkaline Phosphatase Troponin T 0.277 H* 0.297 H* NT-Pro-B Natriuret Pep Albumin 11/17/21 11/17/21 11/17/21 08:48 08:48 08:48 Hgb 11.7 L MCH 27 L RDW 12.9 L [place] % (Auto) 9.4 H Seg Neutrophils % 72.4 H PT INR Heparin Anti-Xa Level ABG pH ABG pO2 ABG HCO3 ABG O2 Saturation ABG Base Excess ABG Hemoglobin Oxyhemoglobin Sodium 132 L Potassium Chloride 96.2 L Glucose 304 H POC Glucose AST 56 H Alkaline Phosphatase Troponin T NT-Pro-B Natriuret Pep 3534 H Albumin 2.9 L 11/17/21 11/17/21 11/17/21 08:48 11:23 16:29 Hgb MCH RDW [place] % (Auto) Seg Neutrophils % PT 15.8 H INR 1.14 H Heparin Anti-Xa Level ABG pH ABG pO2 ABG HCO3 ABG O2 Saturation ABG Base Excess ABG Hemoglobin Oxyhemoglobin Sodium Potassium Chloride Glucose POC Glucose 280 H 124 H AST Alkaline Phosphatase Troponin T NT-Pro-B Natriuret Pep Albumin 11/17/21 19:04 Hgb MCH RDW [place] % (Auto) Seg Neutrophils % PT INR Heparin Anti-Xa Level 1.28 H ABG pH ABG pO2 ABG HCO3 ABG O2 Saturation ABG Base Excess ABG Hemoglobin Oxyhemoglobin Sodium Potassium Chloride Glucose POC Glucose AST Alkaline Phosphatase Troponin T NT-Pro-B Natriuret Pep Albumin - Diagnostic Findings Chest x-ray: image reviewed Assessment and Plan 66 y/o male with acute respiratory failure secondary to pulmonary edema from CHF exacerbation. 1. Diuresis as already ordered 2. Wean FIO2 for sats >88% 3. Should be screened for MILVIA as an outpatient, could have component of central sleep apnea given systolic heart failure 4. Will see pRN
[2021-11-18 05:38] LABS: BUN/Creatinine Ratio 10; Blood Urea Nitrogen 9 mg/dL (9-20); Calcium 8.3 mg/dL (8.4-10.2); Hemolysis Index 0
[2021-11-18] MEDS: FUROSEMIDE 40 MG/4 ML INJ IV SCH ×2 (06:24→18:07)
[2021-11-18] MEDS: INSULIN LISPRO 100 UNIT/ML SUB-Q SCH ×4 (08:30→23:02)
[2021-11-18] MEDS: ASPIRIN EC 81 MG TAB PO SCH (10:10)
[2021-11-18] MEDS: ACETAMINOPHEN 325 MG TAB PO SCH ×3 (10:10→20:49)
[2021-11-18] MEDS: POTASSIUM CHLORIDE ER 20 MEQ TAB PO SCH ×2 (10:10→21:05)
[2021-11-18] MEDS: FAMOTIDINE 20 MG TAB PO SCH ×2 (10:10→21:05)
[2021-11-18] MEDS: glipiZIDE 5 MG TAB PO SCH ×2 (10:10→21:05)
[2021-11-18] MEDS: cefTRIAXone/NS 2 GM/100 ML 2 GM/100 ML BAG IV SCH (10:11)
[2021-11-18] MEDS: METOPROLOL SUCCINATE XL 25 MG TAB PO SCH ×2 (10:22→21:46)
[2021-11-18] MEDS: AMIODARONE 200 MG TAB PO SCH (10:23)
--- NOTE | 2021-11-18 10:24 | Progress Note ---
Assessment and Plan 1. Community-acquired pneumonia probably viral pneumonia. 2. Acute systolic heart failure with pulmonary edema 3. Coronary artery disease status post PCI 4. Paroxysmal atrial fibrillation 5. Type 2 diabetes mellitus 6. Essential hypertension 7. Hyperlipidemia Plan. Patient is currently stable has been started on IV antibiotics and supplemental oxygen. Covid test is been negative although I feel this needs to be repeated due to high probability that there might be underlying viral pneumonia. Started on Nitropaste for pre and afterload reduction. Full anticoagulation with heparin. Recent cardiac echocardiogram and coronary angiogram will be reviewed. Equivocal elevated serum troponin levels suggest underlying ischemic ca rdiomyopathy. Patient in negative fluid balance Subjective Date of service: 11/18/21 Interval history: Feels better no dyspnea today Objective Vital Signs Temp Pulse Resp BP Pulse Ox 11/18/21 06:15 98.5 F 67 18 119/81 100 11/17/21 23:15 18 11/17/21 23:00 18 97 11/17/21 22:24 72 107/76 11/17/21 22:15 18 11/17/21 20:48 98.4 F 72 18 107/76 97 11/17/21 19:54 18 11/17/21 16:30 98.0 F 67 18 105/69 96 11/17/21 12:00 79 100/73 11/17/21 11:22 97.0 F L 79 18 100/73 96 11/17/21 11:00 94 - Physical Examination General: Appears Well, No Apparent Distress HEENT: Positive: PERRL, Mucus Membranes Moist Neck: Positive: neck supple, trachea midline Cardiac: Positive: Regular Rate, S1/S2, PMI, Dilated, Laterally Displaced Lungs: Positive: Rhonchi. Negative: Rales, Wheezes Neuro: Positive: Grossly Intact Abdomen: Positive: Soft, Active Bowel Sounds. Negative: Tender, Distended Skin: Positive: Clear Extremities: Absent: edema - Labs and Meds Comprehensive Metabolic Panel 11/18/21 Range/Units 04:55 Sodium 141 D (137-145) mmol/L Potassium 4.2 (3.6-5.0) mmol/L Chloride 103.2 (98-107) mmol/L Carbon Dioxide 27 (22-30) mmol/L BUN 9 (9-20) mg/dL Creatinine 0.9 (0.8-1.3) mg/dL Glucose 126 H (75-100) mg/dL Calcium 8.3 L (8.4-10.2) mg/dL - Imaging and Cardiology EKG: report reviewed
[2021-11-18] MEDS: LISINOPRIL 5 MG TAB PO SCH ×2 (10:25→10:52)
[2021-11-18] MEDS: AZITHROMYCIN/NS 500 MG/250 ML 500 MG/250 ML BAG IV SCH (10:56)
--- NOTE | 2021-11-18 12:29 | Progress Note ---
Assessment and Plan 66 y/o male with acute respiratory failure secondary to pulmonary edema from CHF exacerbation. 11/18/21: Continue diuresis 1. Diuresis as already ordered 2. Wean FIO2 for sats >88% 3. Should be screened for MILVIA as an outpatient, could have component of central sleep apnea given systolic heart failure 4. Will see pRN Subjective Date of service: 11/18/21 Interval history: No acute events. Objective Vital Signs - 12hr 11/18/21 11/18/21 11/18/21 06:15 10:22 10:52 Temperature 98.5 F Pulse Rate 67 68 68 Respiratory 18 Rate Blood Pressure 119/81 105/73 105/73 O2 Sat by Pulse 100 Oximetry Constitutional: no acute distress, alert Eyes: non-icteric ENT: oropharynx moist Neck: supple Ascultation: Bilateral: rales CBC and BMP: 11/17/21 08:48 11/18/21 04:55 ABG, PT/INR, D-dimer: ABG ABG pH 7.465 pH Units (7.350-7.450) H 11/16/21 18:35 ABG pCO2 39.9 mm Hg 11/16/21 18:35 ABG pO2 55.0 mm Hg (80.0-90.0) L 11/16/21 18:35 ABG O2 Saturation 91.5 % (95.0-99.0) L 11/16/21 18:35 PT/INR, D-dimer PT 15.8 Sec. (12.2-14.9) H 11/17/21 08:48 INR 1.14 (0.87-1.13) H 11/17/21 08:48 Abnormal lab findings: Abnormal Labs 11/16/21 11/16/21 11/16/21 14:44 14:44 14:44 Hgb MCH 27 L RDW 13.1 L [place] % (Auto) 10.8 H Seg Neutrophils % PT INR Heparin Anti-Xa Level ABG pH ABG pO2 ABG HCO3 ABG O2 Saturation ABG Base Excess ABG Hemoglobin Oxyhemoglobin Sodium 136 L Potassium 5.4 H Chloride Glucose 274 H POC Glucose Calcium AST 66 H Alkaline Phosphatase 134 H Troponin T NT-Pro-B Natriuret Pep 3097 H Albumin 3.4 L 01/28/22 01/28/22 01/28/22 14:45 15:09 15:09 Hgb MCH RDW [place] % (Auto) Seg Neutrophils % PT 15.7 H INR Heparin Anti-Xa Level ABG pH ABG pO2 72.1 L ABG HCO3 27.3 H ABG O2 Saturation ABG Base Excess ABG Hemoglobin 12.2 L Oxyhemoglobin 94.1 L Sodium Potassium Chloride Glucose POC Glucose Calcium AST Alkaline Phosphatase Troponin T 0.321 H* NT-Pro-B Natriuret Pep Albumin 11/16/21 11/16/21 11/16/21 17:29 18:35 20:37 Hgb MCH RDW [place] % (Auto) Seg Neutrophils % PT INR Heparin Anti-Xa Level ABG pH 7.465 H ABG pO2 55.0 L ABG HCO3 28.0 H ABG O2 Saturation 91.5 L ABG Base Excess 4.1 H ABG Hemoglobin 13.0 L Oxyhemoglobin 89.7 L Sodium Potassium Chloride Glucose POC Glucose Calcium AST Alkaline Phosphatase Troponin T 0.277 H* 0.297 H* NT-Pro-B Natriuret Pep Albumin 11/17/21 11/17/21 11/17/21 08:48 08:48 08:48 Hgb 11.7 L MCH 27 L RDW 12.9 L [place] % (Auto) 9.4 H Seg Neutrophils % 72.4 H PT INR Heparin Anti-Xa Level ABG pH ABG pO2 ABG HCO3 ABG O2 Saturation ABG Base Excess ABG Hemoglobin Oxyhemoglobin Sodium 132 L Potassium Chloride 96.2 L Glucose 304 H POC Glucose Calcium AST 56 H Alkaline Phosphatase Troponin T NT-Pro-B Natriuret Pep 3534 H Albumin 2.9 L 11/17/21 11/17/21 11/17/21 08:48 11:23 16:29 Hgb MCH RDW [place] % (Auto) Seg Neutrophils % PT 15.8 H INR 1.14 H Heparin Anti-Xa Level ABG pH ABG pO2 ABG HCO3 ABG O2 Saturation ABG Base Excess ABG Hemoglobin Oxyhemoglobin Sodium Potassium Chloride Glucose POC Glucose 280 H 124 H Calcium AST Alkaline Phosphatase Troponin T NT-Pro-B Natriuret Pep Albumin 11/17/21 11/17/21 11/18/21 19:04 22:59 04:55 Hgb MCH RDW [place] % (Auto) Seg Neutrophils % PT INR Heparin Anti-Xa Level 1.28 H ABG pH ABG pO2 ABG HCO3 ABG O2 Saturation ABG Base Excess ABG Hemoglobin Oxyhemoglobin Sodium Potassium Chloride Glucose 126 H POC Glucose 207 H Calcium 8.3 L AST Alkaline Phosphatase Troponin T 0.297 H* NT-Pro-B Natriuret Pep Albumin 11/18/21 12:10 Hgb MCH RDW [place] % (Auto) Seg Neutrophils % PT INR Heparin Anti-Xa Level ABG pH ABG pO2 ABG HCO3 ABG O2 Saturation ABG Base Excess ABG Hemoglobin Oxyhemoglobin Sodium Potassium Chloride Glucose POC Glucose 189 H Calcium AST Alkaline Phosphatase Troponin T NT-Pro-B Natriuret Pep Albumin
--- NOTE | 2021-11-18 16:59 | Progress Note ---
Assessment and Plan Assessment and plan: 66-year-old man with history of hypertension, type 2 diabetes, coronary artery disease, hyperlipidemia and atrial fibrillation, coronary artery disease PCI on November 07, 2021 at) comes in for shortness of breath for 2 days, since discharged. Patient was recently admitted here for acute respiratory failure and discharged on 11/14/2021. Imaging studies suggestive of CHF versus pneumonia. CTA negative for PE. Cardiology was consulted and felt that it was CHF. Echo showed LVEF 45 to 50% and moderate to severe MR. Initial oxygen saturations were 79% and hospital medicine service treated him for community- acquired pneumonia . Patient had a negative Covid test. Hypoxia improved, O2 weaned to room air and was discharged Augmentin. Patient comes back to ED for shortness of breath and his oxygen saturation were low at the time of admission to the ER. But after couple hours patient improved On 2 L nasal cannula oxygen, readmitting for further management. (1) Acute respiratory failure with hypoxia Current Visit: Yes Status: Acute Plan to address problem: Likely from CHF with the mitral regurgitation and possible ischemic cardiomyopathy in the setting of recent PCI on 11/07 Did not respond to antibiotic therapy for pneumonia Currently needing 2 L of O2 Started on IV Lasix (2) Acute exacerbation of CHF with MR and CAD Current Visit: Yes Status: Acute Qualifiers: Heart failure type: combined systolic and diastolic Qualified Code(s): I50.43 - Acute on chronic combined systolic (congestive) and diastolic (congestive) heart failure Plan to address problem: Echocardiogram in 10/2021 showed borderline LV size, mild LVH, LVEF 45 to 50%, borderline LA size, moderate to severe mitral regurgitation. BNP 3534. Etiology likely mitral regurgitation and possible ischemic cardiomyopathy in the setting of PCI on 11/07 Cardiology consulted Continue IV Lasix for now (3) borderline flat troponin elevation, CAD s/p PCI on 11/07/21 Current Visit: Yes Status: Chronic Qualifiers: Coronary Disease-Associated Artery/Lesion type: [place] artery [place] vs. transplanted heart: [place] heart Plan to address problem: Status post PCI on . Concerning for ACP/ischemic cardiomyopathy, however patient has no chest pain. Serial troponins 0.32, 0.29, 0.29 Placed on heparin infusion and cardiology consulted. Continue beta-marguax, aspirin, Plavix, statin (4) chronic paroxysmal A. fib Current Visit: Yes Status: Acute Plan to address problem: sinus rhythm on EKG On home Elijameel, currently on heparin guttae residential monitor (5) PCR test negative for COVID-19 twice Current Visit: No Status: Acute Plan to address problem: Lung opacities more likely CHF than pneumonia. PCR negative for Covid test last week here PCR test negative again during this admission Procalcitonin was also normal last week. Currently afebrile with a normal WBC. No need for antibiotics. (6) acute on chronic low back pain Current Visit: Yes Status: Acute Plan to address problem: Patient reports acute exacerbation of back pain since a week or so. Will treat with tramadol and Tylenol as well as PT, better (7) Hypertension Current Visit: Yes Status: Chronic Qualifiers: Hypertension type: primary hypertension Qualified Code(s): I10 - Essential (primary) hypertension Plan to address problem: Continue antihypertensives and adjust medications (8) T2DM (type 2 diabetes mellitus) Current Visit: Yes Status: Chronic Qualifiers: Diabetes mellitus long term care phlebotomist insulin use: unspecified fpc insulin use status Plan to address problem: Continue home medications and coverage for now Check hemoglobin A1c (9) history of cognitive impairment Patient is a poor historian likely from some underlying dementia/memory impairment. (10) DVT prophylaxis Current Visit: Yes Status: Acute Plan to address problem: On heparin guttae currently (11) Advance care planning Current Visit: Yes Status: Acute Plan to address problem: Disease education conducted, care plan discussed, diagnosis discussed, prognosis discussed. Patient is full code. Patient acknowledges understanding and agreement with care plan. +30 minutes. Discussed the patient and the nursing staff. Total time spent in the direct care: 35 minutes History Interval history: Patient remains on heparin guttae and cardiology following. BP soft but stable. Patient is asymptomatic. Denies chest pains or dyspnea. No fever or chills. Low back pain better on tramadol and Tylenol. Hospitalist Physical - Constitutional Vitals: Temp Pulse Resp BP Pulse Ox 98.5 F 68 18 105/73 96 11/18/21 06:15 11/18/21 10:52 11/18/21 11:00 11/18/21 10:52 11/18/21 11:00 General appearance: Present: no acute distress, well-nourished - EENT Eyes: Present: PERRL, EOM intact ENT: clear oral mucosa - Neck Neck: Present: supple - Respiratory Respiratory effort: normal Respiratory: bilateral: CTA (Diminished breath sounds at bases, no rales or rhonchi. No wheezes.) - Cardiovascular Rhythm: regular - Extremities Extremities: No edema - Abdominal General gastrointestinal: soft, non-tender, non-distended - Integumentary Integumentary: Absent: rash - Psychiatric Psychiatric: appropriate mood/affect - Neurologic Neurologic: no focal deficits, moves all extremities HEART Score - HEART Score Age: > 65 Troponin: Troponin T 0.297 ng/mL (0.00-0.029) H* 11/18/21 04:55 Troponin: < normal limit - Critical Actions Critical Actions: 0-3 pts:0.9-1.7%risk of adverse cardiac event.Candidate for discharge Results - Labs CBC & Chem 7: 11/17/21 08:48 11/18/21 04:55 Labs: Laboratory Last Values WBC 8.1 K/mm3 (4.5-11.0) 11/17/21 08:48 RBC 4.40 M/mm3 (3.65-5.03) 11/17/21 08:48 Hgb 11.7 gm/dl (11.8-15.2) L 11/17/21 08:48 Hct 36.7 % (35.5-45.6) 11/17/21 08:48 MCV 84 fl (84-94) 11/17/21 08:48 MCH 27 pg (28-32) L 11/17/21 08:48 MCHC 32 % (32-34) 11/17/21 08:48 RDW 12.9 % (13.2-15.2) L 11/17/21 08:48 Plt Count 378 K/mm3 (140-440) 11/17/21 08:48 Lymph % (Auto) 17.0 % (13.4-35.0) 11/17/21 08:48 [place] % (Auto) 9.4 % (0.0-7.3) H 11/17/21 08:48 Eos % (Auto) 1.0 % (0.0-4.3) 11/17/21 08:48 Baso % (Auto) 0.2 % (0.0-1.8) 11/17/21 08:48 Lymph # (Auto) 1.4 K/mm3 (1.2-5.4) 11/17/21 08:48 [place] # (Auto) 0.8 K/mm3 (0.0-0.8) 11/17/21 08:48 Eos # (Auto) 0.1 K/mm3 (0.0-0.4) 11/17/21 08:48 Baso # (Auto) 0.0 K/mm3 (0.0-0.1) 11/17/21 08:48 Seg Neutrophils % 72.4 % (40.0-70.0) H 11/17/21 08:48 Seg Neutrophils # 5.9 K/mm3 (1.8-7.7) 11/17/21 08:48 PT 15.8 Sec. (12.2-14.9) H 11/17/21 08:48 INR 1.14 (0.87-1.13) H 11/17/21 08:48 APTT 36.3 Sec. (24.2-36.6) 11/17/21 08:48 Heparin Anti-Xa Level 0.70 U.I./ml (0.3-0.7) 11/18/21 04:55 ABG pH 7.465 pH Units (7.350-7.450) H 11/16/21 18:35 ABG pCO2 39.9 mm Hg 11/16/21 18:35 ABG pO2 55.0 mm Hg (80.0-90.0) L 11/16/21 18:35 ABG HCO3 28.0 mmol/L (20.0-26.0) H 11/16/21 18:35 ABG O2 Saturation 91.5 % (95.0-99.0) L 11/16/21 18:35 ABG O2 Content 16.4 (0.0-44) 11/16/21 18:35 ABG Base Excess 4.1 mmol/L (-2.0-3.0) H 11/16/21 18:35 ABG Hemoglobin 13.0 gm/dl (14.0-18.0) L 11/16/21 18:35 ABG Carboxyhemoglobin 1.6 % (0.0-5.0) 11/16/21 18:35 ABG Methemoglobin 0.5 % (0.0-1.5) 11/16/21 18:35 Oxyhemoglobin 89.7 % (95.0-99.0) L 11/16/21 18:35 FiO2 21 % 11/16/21 18:35 Sodium 141 mmol/L (137-145) D 11/18/21 04:55 Potassium 4.2 mmol/L (3.6-5.0) 11/18/21 04:55 Chloride 103.2 mmol/L (98-107) 11/18/21 04:55 Carbon Dioxide 27 mmol/L (22-30) 11/18/21 04:55 Anion Gap 15 mmol/L 11/18/21 04:55 BUN 9 mg/dL (9-20) 11/18/21 04:55 Creatinine 0.9 mg/dL (0.8-1.3) 11/18/21 04:55 Estimated GFR > 60 ml/min 11/18/21 04:55 BUN/Creatinine Ratio 10 % 11/18/21 04:55 Glucose 126 mg/dL (75-100) H 11/18/21 04:55 POC Glucose 145 mg/dL (70-105) H 11/18/21 16:12 Calcium 8.3 mg/dL (8.4-10.2) L 11/18/21 04:55 Magnesium 1.90 mg/dL (1.7-2.3) 11/18/21 04:55 Total Bilirubin 0.30 mg/dL (0.1-1.2) 11/17/21 08:48 AST 56 units/L (5-40) H 11/17/21 08:48 ALT 46 units/L (7-56) 11/17/21 08:48 Alkaline Phosphatase 125 units/L (35-129) 11/17/21 08:48 Total Creatine Kinase 61 units/L (55-170) 11/16/21 14:44 Troponin T 0.297 ng/mL (0.00-0.029) H* 11/18/21 04:55 NT-Pro-B Natriuret Pep 3534 pg/mL (0-900) H 11/17/21 08:48 Total Protein 6.5 g/dL (6.3-8.2) 11/17/21 08:48 Albumin 2.9 g/dL (3.9-5) L 11/17/21 08:48 Albumin/Globulin Ratio 0.8 % 11/17/21 08:48 Coronavirus (PCR) Negative (Negative) 11/17/21 09:22 Microbiology: Microbiology 11/16/21 16:13 Peripheral/Venous Blood Culture - Preliminary NO GROWTH AFTER 48 HOURS 11/16/21 16:08 Peripheral/Venous Blood Culture - Preliminary NO GROWTH AFTER 48 HOURS [place]/IV: Voiding Method Urinal Active Medications - Current Medications Current Medications: Generic Name Dose Route Start Last Admin Trade Name Freq PRN Reason Stop Dose Admin Acetaminophen 650 mg 11/17/21 18:00 11/18/21 13:51 Acetaminophen 325 Mg Tab PO 650 mg TID NELIDA Administration Amiodarone HCl 200 mg 11/16/21 20:00 11/18/21 10:23 Amiodarone 200 Mg Tab PO 200 mg DAILY NELIDA Administration Aspirin 81 mg 11/16/21 22:00 11/18/21 10:10 Aspirin Ec 81 Mg Tab PO 81 mg QDAY NELIDA Administration Atorvastatin Calcium 80 mg 11/16/21 22:00 11/17/21 22:14 Atorvastatin 40 Mg Tab PO 80 mg QHS NELIDA Administration Donepezil HCl 5 mg 11/16/21 22:00 11/17/21 22:15 Donepezil 5 Mg Tab PO 5 mg HS NELIDA Administration Famotidine 20 mg 11/16/21 22:00 11/18/21 10:10 Famotidine 20 Mg Tab PO 20 mg BID NELIDA Administration Furosemide 40 mg 11/17/21 18:00 11/18/21 06:24 Furosemide 40 Mg/4 Ml Inj IV 40 mg 0600,1800 NELIDA Administration Glipizide 5 mg 11/16/21 22:00 11/18/21 10:10 Glipizide 5 Mg Tab PO 5 mg BID NELIDA Administration Heparin Sodium/Sodium Chloride 25,000 unit in 500 mls @ 20 mls/hr 11/17/21 08:00 11/18/21 05:15 Heparin/ 0.45% Nacl-25,000 Unit/500 Ml IV 850 units/hr TITRATE NELIDA 17 mls/hr Titration Protocol 1,000 UNITS/HR Insulin Human Lispro 0 unit 11/17/21 11:30 11/18/21 13:53 Insulin Lispro 100 Unit/Ml SUB-Q 2 unit ACHS NELIDA Administration Protocol Lisinopril 5 mg 11/17/21 10:00 11/18/21 10:52 Lisinopril 5 Mg Tab PO 5 mg QDAY NELIDA Administration Metoprolol Succinate 25 mg 11/16/21 22:00 11/18/21 10:22 Metoprolol Succinate Xl 25 Mg Tab PO 25 mg BID NELIDA Administration Ondansetron HCl 4 mg 11/16/21 19:03 Ondansetron 4 Mg/2 Ml Inj IV Q8H PRN Nausea And Vomiting Potassium Chloride 20 meq 11/16/21 22:00 11/18/21 10:10 Potassium Chloride Er 20 Meq Tab PO 20 meq Q12HR NELIDA Administration Sodium Chloride 10 ml 11/16/21 22:00 11/18/21 10:24 Sodium Chloride 0.9% 10 Ml Flush Syringe IV 10 ml BID NELIDA Administration Sodium Chloride 10 ml 11/16/21 19:03 Sodium Chloride 0.9% 10 Ml Flush Syringe IV PRN PRN LINE FLUSH Tramadol HCl 50 mg 11/17/21 17:20 Tramadol 50 Mg Tab PO Q6H PRN Pain, Moderate (4-6)
[2021-11-18] MEDS: HEPARIN/ 0.45% NACL DRIP 25,000 UNIT/500 ML BAG IV SCH (18:08)
[2021-11-18] MEDS: DONEPEZIL 5 MG TAB PO SCH (21:06)
[2021-11-19] MEDS: FUROSEMIDE 40 MG/4 ML INJ IV SCH ×2 (05:47→17:30)
[2021-11-19 07:50] LABS: Hematocrit 34.5 % (35.5-45.6)
[2021-11-19] MEDS: ACETAMINOPHEN 325 MG TAB PO SCH ×2 (07:59→14:06)
[2021-11-19 08:02] LABS: BUN/Creatinine Ratio 10; Blood Urea Nitrogen 10 mg/dL (9-20); Calcium 8.7 mg/dL (8.4-10.2); Hemolysis Index 3
[2021-11-19] MEDS ORDERED: SODIUM CHLORIDE 0.9% 50 ML ONE (09:07)
[2021-11-19] MEDS: INSULIN LISPRO 100 UNIT/ML SUB-Q SCH ×3 (10:00→17:24)
[2021-11-19] MEDS: FAMOTIDINE 20 MG TAB PO SCH (11:00)
[2021-11-19] MEDS: ASPIRIN EC 81 MG TAB PO SCH (11:00)
[2021-11-19] MEDS: POTASSIUM CHLORIDE ER 20 MEQ TAB PO SCH (11:00)
[2021-11-19] MEDS: glipiZIDE 5 MG TAB PO SCH ×2 (11:01→17:30)
[2021-11-19] MEDS: LISINOPRIL 5 MG TAB PO SCH (11:03)
[2021-11-19] MEDS: METOPROLOL SUCCINATE XL 25 MG TAB PO SCH (11:03)
[2021-11-19] MEDS: AMIODARONE 200 MG TAB PO SCH (11:03)
[2021-11-19 11:04] VITALS: BP 107/75
--- NOTE | 2021-11-19 11:41 | Progress Note ---
Assessment and Plan 66 y/o male with acute respiratory failure secondary to pulmonary edema from CHF exacerbation. 11/19/21: No new pulm recs, will sign off 11/18/21: Continue diuresis 1. Diuresis as already ordered 2. Wean FIO2 for sats >88% 3. Should be screened for MILVIA as an outpatient, could have component of central sleep apnea given systolic heart failure 4. Will see pRN Subjective Date of service: 11/19/21 Interval history: Stable pulm status Objective Vital Signs - 12hr 11/19/21 11/19/21 05:35 11:03 Temperature 98.0 F Pulse Rate 67 75 Respiratory 18 Rate Blood Pressure 115/72 107/75 O2 Sat by Pulse 99 Oximetry Constitutional: no acute distress, alert Eyes: non-icteric ENT: oropharynx moist Neck: supple Ascultation: Bilateral: rales CBC and BMP: 11/19/21 06:57 11/19/21 06:57 ABG, PT/INR, D-dimer: ABG ABG pH 7.465 pH Units (7.350-7.450) H 11/16/21 18:35 ABG pCO2 39.9 mm Hg 11/16/21 18:35 ABG pO2 55.0 mm Hg (80.0-90.0) L 11/16/21 18:35 ABG O2 Saturation 91.5 % (95.0-99.0) L 11/16/21 18:35 PT/INR, D-dimer PT 15.8 Sec. (12.2-14.9) H 11/17/21 08:48 INR 1.14 (0.87-1.13) H 11/17/21 08:48 Abnormal lab findings: Abnormal Labs 11/16/21 11/16/21 11/16/21 14:44 14:44 14:44 Hgb Hct MCH 27 L RDW 13.1 L [place] % (Auto) 10.8 H Seg Neutrophils % PT INR Heparin Anti-Xa Level ABG pH ABG pO2 ABG HCO3 ABG O2 Saturation ABG Base Excess ABG Hemoglobin Oxyhemoglobin Sodium 136 L Potassium 5.4 H Chloride Glucose 274 H POC Glucose Calcium AST 66 H Alkaline Phosphatase 134 H Troponin T NT-Pro-B Natriuret Pep 3097 H Albumin 3.4 L 11/16/21 11/16/21 11/16/21 14:45 15:09 15:09 Hgb Hct MCH RDW [place] % (Auto) Seg Neutrophils % PT 15.7 H INR Heparin Anti-Xa Level ABG pH ABG pO2 72.1 L ABG HCO3 27.3 H ABG O2 Saturation ABG Base Excess ABG Hemoglobin 12.2 L Oxyhemoglobin 94.1 L Sodium Potassium Chloride Glucose POC Glucose Calcium AST Alkaline Phosphatase Troponin T 0.321 H* NT-Pro-B Natriuret Pep Albumin 11/16/21 11/16/21 11/16/21 17:29 18:35 20:37 Hgb Hct MCH RDW [place] % (Auto) Seg Neutrophils % PT INR Heparin Anti-Xa Level ABG pH 7.465 H ABG pO2 55.0 L ABG HCO3 28.0 H ABG O2 Saturation 91.5 L ABG Base Excess 4.1 H ABG Hemoglobin 13.0 L Oxyhemoglobin 89.7 L Sodium Potassium Chloride Glucose POC Glucose Calcium AST Alkaline Phosphatase Troponin T 0.277 H* 0.297 H* NT-Pro-B Natriuret Pep Albumin 11/17/21 11/17/21 11/17/21 08:48 08:48 08:48 Hgb 11.7 L Hct MCH 27 L RDW 12.9 L [place] % (Auto) 9.4 H Seg Neutrophils % 72.4 H PT INR Heparin Anti-Xa Level ABG pH ABG pO2 ABG HCO3 ABG O2 Saturation ABG Base Excess ABG Hemoglobin Oxyhemoglobin Sodium 132 L Potassium Chloride 96.2 L Glucose 304 H POC Glucose Calcium AST 56 H Alkaline Phosphatase Troponin T NT-Pro-B Natriuret Pep 3534 H Albumin 2.9 L 11/17/21 11/17/21 11/17/21 08:48 11:23 16:29 Hgb Hct MCH RDW [place] % (Auto) Seg Neutrophils % PT 15.8 H INR 1.14 H Heparin Anti-Xa Level ABG pH ABG pO2 ABG HCO3 ABG O2 Saturation ABG Base Excess ABG Hemoglobin Oxyhemoglobin Sodium Potassium Chloride Glucose POC Glucose 280 H 124 H Calcium AST Alkaline Phosphatase Troponin T NT-Pro-B Natriuret Pep Albumin 11/17/21 11/17/21 11/18/21 19:04 22:59 04:55 Hgb Hct MCH RDW [place] % (Auto) Seg Neutrophils % PT INR Heparin Anti-Xa Level 1.28 H ABG pH ABG pO2 ABG HCO3 ABG O2 Saturation ABG Base Excess ABG Hemoglobin Oxyhemoglobin Sodium Potassium Chloride Glucose 126 H POC Glucose 207 H Calcium 8.3 L AST Alkaline Phosphatase Troponin T 0.297 H* NT-Pro-B Natriuret Pep Albumin 11/18/21 11/18/21 11/18/21 12:10 16:12 21:20 Hgb Hct MCH RDW [place] % (Auto) Seg Neutrophils % PT INR Heparin Anti-Xa Level ABG pH ABG pO2 ABG HCO3 ABG O2 Saturation ABG Base Excess ABG Hemoglobin Oxyhemoglobin Sodium Potassium Chloride Glucose POC Glucose 189 H 145 H 189 H Calcium AST Alkaline Phosphatase Troponin T NT-Pro-B Natriuret Pep Albumin 11/19/21 11/19/21 11/19/21 06:57 06:57 06:57 Hgb 11.0 L Hct 34.5 L MCH RDW [place] % (Auto) Seg Neutrophils % PT INR Heparin Anti-Xa Level 0.21 L ABG pH ABG pO2 ABG HCO3 ABG O2 Saturation ABG Base Excess ABG Hemoglobin Oxyhemoglobin Sodium Potassium Chloride Glucose 106 H POC Glucose Calcium AST Alkaline Phosphatase Troponin T NT-Pro-B Natriuret Pep Albumin
--- NOTE | 2021-11-19 14:01 | Progress Note ---
Assessment and Plan - Patient Problems (1) Acute respiratory failure with hypoxia Current Visit: Yes Status: Acute Plan to address problem: Patient presents with shortness of breath, hypoxemia and a recurrence of severe bilateral pulmonary infiltrates. Differential diagnosis include atypical pneumonia versus cardiogenic pulmonary edema. COVID-19 test is negative. He has coronary artery disease and underwent coronary stent placement about 2 weeks ago, has been fully compliant with dual oral antiplatelet therapy. There are no ST changes on his ECG. We have also found that he has moderate to severe eccentric mitral valve regurgitation which will be a concern for possible recurrent pulmonary edema. We will continue medical therapy for his coronary artery disease, aggressive diuretic therapy, and repeat chest x-ray tomorrow. Further cardiac evaluation and management will depend on clinical course. Subjective Date of service: 11/19/21 Interval history: Patient is well known to us from his most recent hospitalization here about a week ago. He presented with shortness of breath and bilateral pulmonary infiltrates, 2 days after a coronary stent procedure at [facility]. There were no ST changes of acute coronary ischemia that would indicate a possible subacute stent thrombosis. The chest x-ray findings were consistent with either a bilateral pneumonia or acute pulmonary edema. His COVID-19 test was negative. Following diuresis, his chest x-ray infiltrates are resolved, suggesting a possible cardiogenic component to his interstitial edema. An echocardiogram also showed moderate to moderately severe eccentric mitral regurgitation and normal left ventricular systolic function. He was discharged on medical therapy to include diuretics, with a recommendation for outpatient follow-up office mitral valve pathology. He presents at this time with recurrent acute shortness of breath and hypoxemia, chest x-ray again shows severe recurrent bilateral confluent infiltrates. COVID-19 repeat test is negative. The patient has no chest pain, and is reported to be fully compliant with his dual oral antiplatelet therapy Plavix and aspirin. Comorbidities include paroxysmal atrial fibrillation for which he is on triple therapy with Eliquis. Objective Vital Signs Temp Pulse Resp BP Pulse Ox 11/19/21 13:06 98 11/19/21 11:05 97.9 F 11/19/21 11:03 75 107/75 11/19/21 11:01 70 100 11/19/21 05:35 98.0 F 67 18 115/72 99 11/18/21 23:00 17 100 11/18/21 22:18 98.4 F 70 18 100/70 99 11/18/21 21:46 72 106/72 11/18/21 21:42 17 11/18/21 21:02 98.2 F 72 17 72 100 11/18/21 20:49 17 - Physical Examination General: No Apparent Distress HEENT: Positive: PERRL, Mucus Membranes Moist Neck: Positive: neck supple, trachea midline Cardiac: Positive: Reg Rate and Rhythm Lungs: Positive: Decreased Breath Sounds Neuro: Positive: Grossly Intact Abdomen: Positive: Soft, Active Bowel Sounds. Negative: Tender, Distended Skin: Positive: Clear Extremities: Absent: edema - Labs and Meds CBC 11/19/21 Range/Units 06:57 Hgb 11.0 L (11.8-15.2) gm/dl Hct 34.5 L (35.5-45.6) % Plt Count 308 (140-440) K/mm3 Comprehensive Metabolic Panel 11/19/21 Range/Units 06:57 Sodium 140 (137-145) mmol/L Potassium 4.1 (3.6-5.0) mmol/L Chloride 103.3 (98-107) mmol/L Carbon Dioxide 26 (22-30) mmol/L BUN 10 (9-20) mg/dL Creatinine 1.0 (0.8-1.3) mg/dL Glucose 106 H (75-100) mg/dL Calcium 8.7 (8.4-10.2) mg/dL - Imaging and Cardiology EKG: report reviewed
--- NOTE | 2021-11-19 16:47 | Discharge Summary ---
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 Patient was recently admitted here for acute respiratory failure and discharged on 11/14/2021. Imaging studies suggestive of CHF versus pneumonia. CTA negative for PE. Cardiology was consulted and felt that it was CHF. Echo showed LVEF 45 to 50% and moderate to severe MR. Initial oxygen saturations were 79% and hospital medicine service treated him for community- acquired pneumonia . Patient had a negative Covid test. Hypoxia improved, O2 weaned to room air and was discharged Augmentin. Patient comes back to ED for shortness of breath and his oxygen saturation were low at the time of admission to the ER. But after couple hours patient improved On 2 L nasal cannula oxygen, readmitting for further management. (1) Acute respiratory failure with hypoxia Current Visit: Yes Status: Acute Plan to address problem: From CHF Discharge on oral Lasix (2) Acute exacerbation of CHF with MR and CAD Current Visit: Yes Status: Acute Qualifiers: Heart failure type: combined systolic and diastolic Qualified Code(s): I50.43 - Acute on chronic combined systolic (congestive) and diastolic (congestive) heart failure Plan to address problem: Echocardiogram in 10/2021 showed borderline LV size, mild LVH, LVEF 45 to 50%, borderline LA size, moderate to severe mitral regurgitation. BNP 3534. Etiology likely mitral regurgitation and possible ischemic cardiomyopathy in the setting of PCI on 11/07 Cardiology consulted Continue IV Lasix for now Discharged on oral Lasix (3) borderline flat troponin elevation, CAD s/p PCI on 11/07/21 Current Visit: Yes Status: Chronic Qualifiers: Coronary Disease-Associated Artery/Lesion type: big sandy artery [place] vs. transplanted heart: big sandy heart Plan to address problem: Status post PCI on . Concerning for ACP/ischemic cardiomyopathy, however patient has no chest pain. Serial troponins 0.32, 0.29, 0.29 Patient being discharged on Eliquis because of the chronic A. fib (4) chronic paroxysmal A. fib Current Visit: Yes Status: Acute Plan to address problem: Patient being discharged on home Eliquis (5) PCR test negative for COVID-19 twice Current Visit: No Status: Acute Plan to address problem: Lung opacities more likely CHF than pneumonia. PCR negative for Covid test last week here PCR test negative again during this admission Procalcitonin was also normal last week. Currently afebrile with a normal WBC. No need for antibiotics. (6) acute on chronic low back pain Current Visit: Yes Status: Acute Plan to address problem: Patient reports acute exacerbation of back pain since a week or so. Will treat with tramadol and Tylenol as well as PT, better (7) Hypertension Current Visit: Yes Status: Chronic Qualifiers: Hypertension type: primary hypertension Qualified Code(s): I10 - Essential (primary) hypertension Plan to address problem: Continue antihypertensives and adjust medications (8) T2DM (type 2 diabetes mellitus) Current Visit: Yes Status: Chronic Qualifiers: Diabetes mellitus terminal operator insulin use: unspecified nursing home insulin use status Plan to address problem: Continue home medications and coverage for now Check hemoglobin A1c (9) history of cognitive impairment Patient is a poor historian likely from some underlying dementia/memory impairment. (10) DVT prophylaxis Current Visit: Yes Status: Acute Plan to address problem: On heparin guttae currently (11) Advance care planning Current Visit: Yes Status: Acute Plan to address problem: Disease education conducted, care plan discussed, diagnosis discussed, prognosis discussed. Patient is full code. Patient acknowledges understanding and agreement with care plan. +30 minutes. Discussed the patient and the nursing staff. Disposition: 01 HOME / SELF CARE / HOMELESS Final Discharge Diagnosis (Prints w/discharge instructions): Acute respiratory failure with hypoxia. #2 acute exacerbation of CHF. Chronic A. fib. PUI Time spent for discharge: 35 minutes - Discharge Diagnoses (1) Acute respiratory failure with hypoxia Status: Acute (2) Suspected COVID-19 virus infection Status: Acute (3) Acute exacerbation of CHF (congestive heart failure) Status: Acute Qualifiers: Heart failure type: combined systolic and diastolic Qualified Code(s): I50.43 - Acute on chronic combined systolic (congestive) and diastolic (congestive) heart failure (4) Bilateral pneumonia Status: Acute (5) Arrhythmia Status: Acute (6) CAD (coronary artery disease) Status: Chronic Qualifiers: Coronary Disease-Associated Artery/Lesion type: [place] artery [place] vs. transplanted heart: big sandy heart (7) Hypertension Status: Chronic Qualifiers: Hypertension type: primary hypertension Qualified Code(s): I10 - Essential (primary) hypertension (8) T2DM (type 2 diabetes mellitus) Status: Chronic Qualifiers: Diabetes mellitus terminal operator insulin use: unspecified terminal operator insulin use status (9) DVT prophylaxis Status: Acute (10) Advance care planning Status: Acute Core Measure Documentation - Palliative Care Palliative Care/ Comfort Measures: Not Applicable - Core Measures Any of the following diagnoses?: none Exam - Constitutional Vitals: Temp Pulse Resp BP Pulse Ox 97.9 F 75 18 107/75 98 11/19/21 11:05 11/19/21 11:03 11/19/21 05:35 11/19/21 11:03 11/19/21 13:06 General appearance: Present: no acute distress, well-nourished - EENT Eyes: Present: PERRL ENT: hearing intact, clear oral mucosa - Neck Neck: Present: supple, normal ROM - Respiratory Respiratory effort: normal Respiratory: bilateral: CTA - Cardiovascular Heart rate: 78 Rhythm: irregularly irregular Heart Sounds: Present: S1 & S2. Absent: rub, click - Extremities Extremities: no ischemia, pulses intact, pulses symmetrical, No edema Peripheral Pulses: within normal limits - Abdominal General gastrointestinal: Present: soft, non-tender, non-distended, normal bowel sounds Male genitourinary: Present: normal - Integumentary Integumentary: Present: clear, warm, dry - Musculoskeletal Musculoskeletal: gait normal, strength equal bilaterally - Psychiatric Psychiatric: appropriate mood/affect, intact judgment & insight - Neurologic Neurologic: CNII-XII intact, moves all extremities - Allied Health Allied health notes reviewed: nursing, case management Plan Activity: no restrictions Diet: low fat (50 minutes were [id number] is being picked up), low cholesterol, low salt Follow up with: PRIMARY CARE, [Primary Care Provider] - 3-5 Days MANUEL DENNEY MD [Staff Physician] - 7 Days
== END 2021-11-19 19:00 | disposition home or self-care (01) | DRG 291 ==
LOC: ED 14:24 → 3A 19:03
PROVIDERS: ADMIT Internal Medicine; ATTEND Internal Medicine
PROC: 4A033R1 Measurement of Arterial Saturation, Peripheral, Percutaneous Approach (ICD-10-PCS; principal; 2021-11-16)
DX: I11.0 Hypertensive heart disease with heart failure (principal); I50.43 Acute on chronic combined systolic (congestive) and diastolic (congestive) heart failure; J96.01 Acute respiratory failure with hypoxia; I48.20 Chronic atrial fibrillation, unspecified; I25.10 Atherosclerotic heart disease of native coronary artery without angina pectoris; Z20.822 Contact with and (suspected) exposure to COVID-19; E78.5 Hyperlipidemia, unspecified; I49.9 Cardiac arrhythmia, unspecified; E11.9 Type 2 diabetes mellitus without complications; Z82.49 Family history of ischemic heart disease and other diseases of the circulatory system; I48.0 Paroxysmal atrial fibrillation; G89.29 Other chronic pain; M54.50 Low back pain, unspecified
CPT/HCPCS: 36415; 71045; 74177; 80048; 80053; 82550; 82803; 82962; 83735; 83880; 84484; 85014; 85018; 85025; 85049; 85520; 85610; 85730; 87040; 93005; 93010; G0378; J3490; Q9967; J0456; J0692; J0696; J1644; J1815; J1940; J3370; J7040; U0003

== ENCOUNTER 2022-05-11 21:17 | Emergency (ER) | payer MEDICARE ==
[2022-05-11 23:06] VITALS: BP 142/86
[2022-05-11] MEDS ORDERED: SODIUM CHLORIDE 0.9% 1000 ML 1,000 ML IV ONE (23:50)
--- NOTE | 2022-05-11 23:57 | Emergency Department Report ---
ED Dizziness HPI - General Chief Complaint: Dizziness Stated Complaint: FALL/WEAKNESS Time Seen by Provider: 05/11/22 23:34 Source: patient Mode of arrival: Stretcher Limitations: No Limitations - History of Present Illness Initial Comments: 67 yo M with h/o DM who present with dizziness that occurred shortly before presentation. He says he was walking that started feeling dizzy and fell and struck his head. No VIDAL but visual changes reported. No other modifying or associated factors reported. MD Complaint: dizziness - Related Data Home Medications Medication Instructions Recorded Confirmed Last Taken Nitroglycerin [Nitrostat] 0.4 mg SL Q5M 11/11/21 11/17/21 Unknown Previous Rx's Medication Instructions Recorded Last Taken Type Amoxicillin/K Clav Tab [Augmentin 1 each PO Q12HR #2 tablet 11/14/21 2 Days Ago Rx 875MG TAB] ~11/15/21 Amiodarone [Cordarone 200 MG TAB] 200 mg PO DAILY 30 Days #30 tablet 11/19/21 Unknown Rx Apixaban [Eliquis] 5 mg PO BID #60 11/19/21 Unknown Rx Aspirin EC [Halfprin EC] 81 mg PO QDAY #100 tablet 11/19/21 Unknown Rx AtorvaSTATin [Lipitor] 20 mg PO QHS 30 Days #30 tablet 11/19/21 Unknown Rx Furosemide [Lasix TAB] 40 mg PO QDAY #30 tablet 11/19/21 Unknown Rx Metoprolol Succinate [Toprol Xl] 25 mg PO BID #60 11/19/21 Unknown Rx Metoprolol Xl [Metoprolol 25 mg PO BID #60 tablet 11/19/21 Unknown Rx SUCCINATE ER TAB] Potassium Chloride [K-Dur] 20 meq PO QDAY 30 Days #30 11/19/21 Unknown Rx donepeziL [Aricept] 5 mg PO HS #60 tablet 11/19/21 Unknown Rx glipiZIDE [Glucotrol] 10 mg PO BID #60 11/19/21 Unknown Rx lisinopriL [Zestril TAB] 10 mg PO QDAY 30 Days #30 tablet 11/19/21 Unknown Rx Allergies Allergy/AdvReac Type Severity Reaction Status Date / Time No Known Allergies Allergy Verified 11/11/21 07:07 ED Review of Systems ROS: Stated complaint: FALL/WEAKNESS Other details as noted in HPI Comment: All other systems reviewed and negative Neurological: vertigo, other (dizziness ) ED Past Medical Hx - Past Medical History Previous Medical History?: Yes Hx Hypertension: Yes Hx Heart Attack/AMI: Yes Hx Congestive Heart Failure: Yes Hx Diabetes: Yes Additional medical history: Atrial fibrillation - Surgical History Past Surgical History?: Yes Hx Coronary Stent: Yes - Social History Smoking Status: Never Smoker Substance Use Type: None - Medications Home Medications: Home Medications Medication Instructions Recorded Confirmed Last Taken Type Nitroglycerin [Nitrostat] 0.4 mg SL Q5M 11/11/21 11/17/21 Unknown History Amoxicillin/K Clav Tab [Augmentin 1 each PO Q12HR #2 tablet 11/14/21 11/17/21 2 Days Ago Rx 875MG TAB] ~11/15/21 Amiodarone [Cordarone 200 MG TAB] 200 mg PO DAILY 30 Days #30 tablet 11/19/21 Unknown Rx Apixaban [Eliquis] 5 mg PO BID #60 11/19/21 Unknown Rx Aspirin EC [Halfprin EC] 81 mg PO QDAY #100 tablet 11/19/21 Unknown Rx AtorvaSTATin [Lipitor] 20 mg PO QHS 30 Days #30 tablet 11/19/21 Unknown Rx Furosemide [Lasix TAB] 40 mg PO QDAY #30 tablet 11/19/21 Unknown Rx Metoprolol Succinate [Toprol Xl] 25 mg PO BID #60 11/19/21 Unknown Rx Metoprolol Xl [Metoprolol 25 mg PO BID #60 tablet 11/19/21 Unknown Rx SUCCINATE ER TAB] Potassium Chloride [K-Dur] 20 meq PO QDAY 30 Days #30 11/19/21 Unknown Rx donepeziL [Aricept] 5 mg PO HS #60 tablet 11/19/21 Unknown Rx glipiZIDE [Glucotrol] 10 mg PO BID #60 11/19/21 Unknown Rx lisinopriL [Zestril TAB] 10 mg PO QDAY 30 Days #30 tablet 11/19/21 Unknown Rx ED Physical Exam - General Limitations: No Limitations General appearance: alert, in no apparent distress - Head Head exam: Present: normal inspection - Eye Eye exam: Present: normal appearance Pupils: Present: normal accommodation - ENT ENT exam: Present: normal exam, normal orophraynx, mucous membranes moist - Neck Neck exam: Present: normal inspection. Absent: tenderness, full ROM - Respiratory Respiratory exam: Present: normal lung sounds bilaterally. Absent: respiratory distress, accessory muscle use - Cardiovascular Cardiovascular Exam: Present: normal rhythm, bradycardia, normal heart sounds - GI/Abdominal GI/Abdominal exam: Present: soft, normal bowel sounds. Absent: distended, tenderness - Extremities Exam Extremities exam: Present: normal inspection, normal capillary refill. Absent: tenderness - Back Exam Back exam: Present: normal inspection. Absent: tenderness - Neurological Exam Neurological exam: Present: alert, oriented X3 - Psychiatric Psychiatric exam: Present: normal affect, normal mood - Skin Skin exam: Present: warm, intact ED Course Vital Signs 05/11/22 21:17 Temperature 97.6 F Pulse Rate 73 Respiratory 18 Rate Blood Pressure 142/86 O2 Sat by Pulse 98 Oximetry ED Medical Decision Making - Lab Data Result diagrams: 05/11/22 23:57 05/11/22 23:57 - EKG Data -: EKG Interpreted by Me EKG shows normal: sinus rhythm Rate: bradycardia - EKG Data 05/11/22 23:55 Noted with sinus bradycardia at a rate of 59 bpm with normal QT and no ST depression or elevation in this otherwise normal ECG. - Radiology Data CT head noted with no acute intracranial abnormality - Medical Decision Making Came with dizziness and a fall --and noted room spinning which is concerning for vertigo but could also be seizure but can not rule out other differential such as CVA especially posterior stroke considering the presenting dizziness/vertigo, or symptomatic anemia, myocardial infarction, pulmonary embolism considering his recent long travels, anxiety, and hypothyroidism--in order to rule those out I will go ahead and order routine cardiopulmonary work-up that include troponin, EKG, chest x-ray, BNP, CKMB, and CBC, CMP, Urinalysis and thyroid panel for any correctable infectious process or electrolyte abnormality as a cause. Will also order CT brain for any intracranial abnormality as mentioned above. In the meantime will give ivf ns 1L bolus for hydration as most are dehydrated in the hot weather anyway. Lab reviewed and noticed blood sugar 445 mg/dl, with elevated AST/ALT 115/110 with normal t-bili--will go ahead and order acute hepatitis for any infectious process-- also noted with low H&H 8.3/25.2 --this could be contributing to this patient symptoms-- it was noticed to be trending down since visit in October 7 months ago-- Critical care attestation.: If time is entered above; I have spent that time in minutes in the direct care of this critically ill patient, excluding procedure time. ED Disposition Clinical Impression: Dizziness, Hyperglycemia due to diabetes mellitus, Transaminitis Fall Qualifiers: Encounter type: initial encounter Qualified Code(s): W19.XXXA - Unspecified fall, initial encounter Anemia Qualifiers: Anemia type: unspecified type Qualified Code(s): D64.9 - Anemia, unspecified Disposition: 01 HOME / SELF CARE / HOMELESS Is pt being admited?: No Does the pt Need Aspirin: No Condition: Stable Instructions: Diabetes Mellitus Type 2 in Adults (ED), Hyperglycemia, [id number], Type 2 Diabetes Mellitus, Self Care, Adult, [id number], Preventing Diabetes Mellitus Complications Additional Instructions: Continue your current medication as prescribed by your primary doctor Increase your daily fluid to help your hydration Please call and follow-up with your primary doctor in the next 3 to 5 days for progress Please do not hesitate to call or return to emergency room if your symptoms worsen Referrals: LOREE FRANCOIS MD [Primary Care Provider] - 3-5 Days Time of Disposition: 05:14
[2022-05-12 00:33] LABS: Basophils % (Auto) 0.1 % (0.0-1.8); Eosinophils % (Auto) 0.1 % (0.0-4.3); Hematocrit 25.2 % (35.5-45.6); Hemoglobin 8.3 gm/dl (11.8-15.2); Lymphocytes # (Auto) 1.1 K/mm3 (1.2-5.4); Lymphocytes % (Auto) 15.6 % (13.4-35.0); Mean Corpuscular HGB Conc 33 % (32-34); Mean Corpuscular Volume 82 fl (84-94); Monocytes # (Auto) 0.7 K/mm3 (0.0-0.8); Monocytes % (Auto) 8.8 % (0.0-7.3); Platelet Count 193 K/mm3 (140-440); Red Blood Count 3.07 M/mm3 (3.65-5.03); Red Cell Distribution Width 14.8 % (13.2-15.2)
[2022-05-12 00:35] LABS: Alanine Aminotransferase 110 units/L (7-56); Albumin 3.6 g/dL (3.9-5); BUN/Creatinine Ratio 19; Blood Urea Nitrogen 25 mg/dL (9-20); Calcium 8.8 mg/dL (8.4-10.2); Hemolysis Index 7
[2022-05-12 00:41] LABS: Free T4 (Free Thyroxine) 1.81 ng/dL (0.76-1.46)
[2022-05-12 00:46] LABS: INR 1.12 (0.87-1.13)
--- NOTE | 2022-05-12 00:47 | XRay Report ---
CHEST 1 VIEW INDICATION / CLINICAL INFORMATION: Lightheadedness/Dizziness. COMPARISON: Chest x-ray 11/16/2021 FINDINGS: SUPPORT DEVICES: None. HEART / MEDIASTINUM: Heart size is within normal limits. Mediastinal contour demonstrates no signific ant abnormality. LUNGS / PLEURA: No significant pulmonary abnormality. BONES: No significant osseous abnormality. ADDITIONAL FINDINGS: No significant additional findings. IMPRESSION: 1. No active cardiopulmonary disease. Signer Name: Santana Estrella II, MD Signed: 05/12/2022 12:43 AM Workstation Name: [email or web address]
--- NOTE | 2022-05-12 01:26 | Cat Scan Report ---
CT HEAD WITHOUT CONTRAST INDICATION / CLINICAL INFORMATION: dizziness. TECHNIQUE: CT head was performed without administration of intravenous contrast. All CT scans at this location are performed using CT dose reduction for ALARA by means of automated exposure control. COMPARISON: None available. FINDINGS: CEREBRAL HEMISPHERES: Generalized atrophy and bilateral regions of periventricular white matter hypoa ttenuation compatible with microvascular ischemia are demonstrated. No midline shift. Basal cisterns patent. HEMORRHAGE: None. CEREBELLUM / BRAINSTEM: No significant abnormality. ORBITS: No significant abnormality. SOFT TISSUES: No significant abnormality. SKULL: No significant abnormality. PARANASAL SINUSES / MASTOID AIR CELLS: Normal as visualized. ADDITIONAL FINDINGS: None. IMPRESSION: 1. No acute intracranial abnormality. Signer Name: Santana Estrella II, MD Signed: 05/12/2022 1:21 AM Workstation Name: [id number]
[2022-05-12] MEDS ORDERED: INSULIN REGULAR, HUMAN 100 UNITS/1 ML IV ONE (03:11)
[2022-05-12] MEDS ORDERED: INSULIN REGULAR, HUMAN 100 UNITS/1 ML SUB-Q ONE (03:11)
[2022-05-12 04:56] LABS: Hepatitis B Surface Antigen Non-Reactive (Negative); Hepatitis C Virus Antibody Reactive (NonReactive)
--- NOTE | 2022-05-13 10:01 | Electrocardiograph Report ---
[facility] Test Date: 2022-05-11 Test Time: 23:42:39 Pat Name: BRENDAN NESS Department: Room: Gender: M Clinic Manager: ALEKS : 1955 Requested By: ALEYDA WHALEY Order Number: [id number] Reading MD: Jose Maynard Measurements Intervals Vance Rate: 59 P: 71 SD: 171 QRS: 43 QRSD: 98 T: -60 QT: 492 QTc: 489 Interpretive Statements Sinus bradycardia Compared to ECG 11/16/2021 14:41:00 Sinus rhythm no longer present Prolonged QT interval no longer present Electronically Signed On 05-13-2022 10:01:06 EDT by Jose Maynard
== END 2022-05-12 06:07 | disposition home or self-care (01) ==
LOC: ED 21:17
DX: R42 Dizziness and giddiness (principal); E11.65 Type 2 diabetes mellitus with hyperglycemia; R74.01 Elevation of levels of liver transaminase levels; D64.9 Anemia, unspecified; W19.XXXA Unspecified fall, initial encounter; Y93.89 Activity, other specified; Y92.89 Other specified places as the place of occurrence of the external cause; Y99.8 Other external cause status; I10 Essential (primary) hypertension
CPT/HCPCS: 36415; 70450; 71045; 80053; 80074; 82962; 84439; 84443; 84484; 85025; 85610; 93005; 96361; 96372; 96374; 99285; J7030; Q9967; J1815